=== PATIENT | female | born 1985 | race African-American/Black ===

== ENCOUNTER 2023-02-15 06:51 | Observation (INO) ==
[2023-02-15] MEDS ORDERED: FAMOTIDINE 20MG IV PUSH 20 MG/5 ML SYR IV STA (07:13)
[2023-02-15] MEDS ORDERED: ACETAMINOPHEN 1,000 MG/100 ML VIAL IV STA (07:13)
[2023-02-15] MEDS ORDERED: ONDANSETRON INJ 2 MG/ML 2 ML VIAL IV STA (07:13)
[2023-02-15] MEDS ORDERED: SODIUM CHLORIDE 0.9% 1000ML 1,000 ML IV ONE (07:13)
[2023-02-15 07:33] LABS: Basophils # (auto) 0.03 K/uL (0-0.2); Basophils % (auto) 0.4 %; Eosinophils # (auto) 0.02 K/uL (0-0.50); Eosinophils % (auto) 0.3 %; Hemoglobin 12.3 g/dl (12.0-16.0); Immature Granulocytes # (auto) 0.05 K/uL (0.01-0.20); Immature Granulocytes % (auto) 0.7 %; Lymphocytes # (auto) 0.79 K/uL (1.2-3.4); Lymphocytes % (auto) 11.2 %; Mean Corpuscular Hemoglobin 27.1 pg (25.0-34.0); Mean Corpuscular Hgb Conc 36.2 g/dL (32.0-36.0); Mean Corpuscular Volume 74.9 fL (80.0-100.0); Monocytes # (auto) 0.24 K/uL (0.11-0.59); Monocytes % (auto) 3.4 %; Neutrophils # (auto) 5.93 K/uL (1.40-6.50); Platelet Count 114 K/uL (130-400); RDW Coefficient of Variation 16.2 % (11.5-14.5); RDW Standard Deviation 43.4 fL (36.4-46.3); Red Blood Count 4.54 M/uL (4.20-5.40); White Blood Count 7.06 K/ul (4.8-10.8)
[2023-02-15 07:47] LABS: Appearance Urine Clear (Clear); Bacteria Urine Automated Negative (Negative); Bilirubin Urine Negative (Negative); Blood Urine Negative (Negative); Color Urine Yellow; Glucose Urine UA Negative (Negative); Ketones Urine Negative (Negative); Leukocyte Esterase Urine Negative (Negative); Nitrite Urine Negative (Negative); Protein Urine 1+ (Negative); RBC Urine Automated 0-4 /hpf (0-4); Specific Gravity Urine 1.014 (1.000-1.030); Urobilinogen Urine Negative (Negative); pH Urine 6.5 (4.5-7.5)
[2023-02-15 07:54] LABS: Albumin Globulin Ratio 1.5 (0.9-2); Albumin Level 4.5 gm/dl (3.4-5.0); BUN Creatinine Ratio 20.5 (10-20); Bilirubin,Total 0.9 mg/dl (0.2-1.0); Calcium 9.3 mg/dl (8.6-10.3); Creatinine Clr Calc Pharmacy 185.7 ml/min; Est GFR (African American) 148.4 ml/min; Est GFR (Non-African American) 128.1 ml/min; Potassium 3.4 mmol/L (3.5-5.1); Total Protein 7.5 gm/dl (6.0-8.3)
--- NOTE | 2023-02-15 08:06 | Emergency Department Note ---
ED Provider Note History of Present Illness Chief Complaint: Abdominal Pain Stated Complaint: ABD PAIN,PREG DOESN'T KNOW HOW LONG Time Seen by Provider: 02/15/23 07:00 Source: patient Mode of arrival: ambulatory Limitations: no limitations This patient is a 37-year-old female who presents to the emergency department for evaluation of abdominal pain. Patient reports that she is currently but does not know how far along. Her last menstrual period w as sometime in early November. She has had positive home test and this was confirmed with testing done at [facility]. She states that she woke up at 230 this morning with severe pain in her upper abdomen. She has had vomiting associated with this. She states pain has been constant, nothing makes it better or worse. She denies any vaginal bleeding. She denies urinary symptoms, fevers or changes in bowel movements. She has had 1 prior which went to term. She has not yet had this confirmed by ultrasound. Allergies Allergy/AdvReac Type Severity Reaction Status Date / Time No Known Allergies Allergy Verified 06/01/22 15:00 Past Med/Surg History Medical History Beta thalassemia trait Medical marijuana use Sickle cell trait Surgical History No pertinent past surgical history Family History Denies family history of Ovarian cancer Breast cancer Colorectal cancer Social History Smoking Status: Never smoker Do You Dip or Chew Tobacco: No; Hx Alcohol Use: No Hx Substance Use: No Preferred Language: Bulgarian Communication Ability: Effective Judge Required: No Beliefs That Will Affect Care: None Current Living Situation: Spouse Other Information That Helps Us Care for You: No Feels Safe at Home: Yes Safety Concerns: Feels Safe At This Time Assistive Devices: Glasses Physical Exam Vital Signs Vital Signs - 24 hr 02/15/23 06:54 02/15/23 11:01 02/15/23 10:52 Temperature 36.4 C L 36.9 C 36.9 C Temperature Source Temporal Artery Scan Oral Oral Pulse Rate 82 Pulse Rate [Finger] 76 Pulse Rhythm [Finger] Regular Pulse Strength [Finger] Normal Respiratory Rate 18 18 16 Respiratory Effort / Characteristics Non-Labored Non-Labored Spontaneous Respiratory Depth Normal Normal Respiratory Pattern Regular Blood Pressure 134/79 Blood Pressure [Right Arm] 124/66 138/78 Blood Pressure Mean 97 Blood Pressure Mean [Right Arm] 85 98 Blood Pressure Position Sitting Blood Pressure Position [Right Arm] Sitting Pulse Oximetry 100 100 98 Oxygen Delivery Method Room Air Room Air Room Air Sepsis Recent Fever Within 48 Hours No Sepsis New/Unexplained Change in Mental Status No Sepsis Action Taken by Nursing No Action Required VITALS: Vitals are noted on the nurse's note and reviewed by myself. GENERAL: This is a 37-year-old female, in no acute distress, well-developed well-nourished. HEART: Regular rate and rhythm without murmurs gallops or rubs. LUNGS: Clear to auscultation bilaterally without wheezes, rales or rhonchi. ABDOMEN: Positive bowel sounds x 4. Soft, tenderness in the epigastric region. No guarding or rebound tenderness. NEURO: Patient was alert and oriented to person place and time. Course Administered Medications Lactated Ringer's (Lr) 1,000 mls @ 70 mls/hr IV .[id number] [facility] Stop: 03/17/23 13:59 Last Admin: 02/15/23 16:09 Dose: 70 mls/hr Documented By: JOANA Discontinued Medications Bupivacaine HCl/Epinephrine Bitart (Bupivacaine/Epinephrine 0.25% 1:200,000 30 Ml Vial) Confirm Administered Dose 30 ml .ROUTE .STK-MED ONE Stop: 02/15/23 12:00 Last Admin: 02/15/23 13:41 Dose: 30 ml Documented By: [id number] Fentanyl Citrate (Fentanyl Citrate Pf 100 Mcg/2 Ml Vial) 50 mcg IV Q5M PRN PRN Reason: PACU Use Only-Pain Stop: 02/15/23 19:38 Last Admin: 02/15/23 14:07 Dose: 50 mcg Documented By: LML Sodium Chloride (Nss 1000ml) 1,000 mls @ 999 mls/hr IV .Q1H1M ONE Stop: 02/15/23 08:13 Last Infusion: 02/15/23 09:13 Dose: 0 mls/hr Documented By: Admin: 02/15/23 07:36 Dose: 999 mls/hr Documented By: SIENNA Famotidine (Pepcid 20mg Iv Push) 20 mg in 5 mls @ 2.5 mls/min IV NOW STA Stop: 02/15/23 07:14 Last Admin: 02/15/23 07:29 Dose: 2.5 mls/min Documented By: SIENNA Acetaminophen (Ofirmev) 1,000 mg in 100 mls @ 400 mls/hr IV NOW STA Stop: 02/15/23 07:27 Last Infusion: 02/15/23 09:14 Dose: 0 mls/hr Documented By: Admin: 02/15/23 07:28 Dose: 400 mls/hr Documented By: SIENNA Cefazolin Sodium (Ancef 2000mg) 2,000 mg in 15 mls @ 3.75 mls/min IV PREOP ONE; Protocol Stop: 02/15/23 13:01 Last Admin: 02/15/23 12:22 Dose: 3.75 mls/min Documented By: [id number] Miscellaneous ( Floseal Hemostatic Matrix 10ml) 10 ml TOP ONCE ONE Stop: 02/15/23 13:26 Last Admin: 02/15/23 13:41 Dose: 10 ml Documented By: [id number] Morphine Sulfate (Morphine Sulfate 4 Mg/Ml 1 Ml Carp\Vial) 4 mg IV NOW STA Stop: 02/15/23 08:09 Last Admin: 02/15/23 08:28 Dose: Not Given Documented By: SIENNA Morphine Sulfate (Morphine Sulfate 4 Mg/Ml 1 Ml Carp\Vial) 4 mg IV NOW STA Stop: 02/15/23 08:50 Last Admin: 02/15/23 08:56 Dose: 4 mg Documented By: SIENNA Ondansetron HCl (Ondansetron Inj 2 Mg/Ml 2 Ml Vial) 4 mg IV NOW STA Stop: 02/15/23 07:14 Last Admin: 02/15/23 07:29 Dose: 4 mg Documented By: SIENNA Medical Decision Making Differential Diagnosis Appendicitis, ovarian cyst, ovarian torsion, ectopic , TOA, PID, infections, diverticulitis, UTI, obstruction, mesenteric ischemia, aortic pathology, inflammatory bowel disease, renal colic, PUD, pancreatitis, biliary pathology, hernia, volvulus, constipation, as well as other pathologies. Home Medications was personally reviewed by me Laboratory Data Attestation: I reviewed the patient's lab results. 02/15/23 07:20 02/15/23 07:20 Lab Results 02/15/23 02/15/23 02/15/23 Range/Units 07:20 07:20 07:20 WBC 7.06 (4.8-10.8) K/ul RBC 4.54 (4.20-5.40) M/uL Hgb 12.3 (12.0-16.0) g/dl Hct 34.0 L (37.0-47.0) % MCV 74.9 L (80.0-100.0) fL MCH 27.1 (25.0-34.0) pg MCHC 36.2 H (32.0-36.0) g/dL RDW Std Deviation 43.4 (36.4-46.3) fL RDW Coeff of John 16.2 H (11.5-14.5) % Plt Count 114 L (130-400) K/uL Immature Gran % (Auto) 0.7 % Neut % (Auto) 84.0 % Lymph % (Auto) 11.2 % [place] % (Auto) 3.4 % Eos % (Auto) 0.3 % Baso % (Auto) 0.4 % Neut # (Auto) 5.93 (1.40-6.50) K/uL Lymph # (Auto) 0.79 L (1.2-3.4) K/uL [place] # (Auto) 0.24 (0.11-0.59) K/uL Eos # (Auto) 0.02 (0-0.50) K/uL Baso # (Auto) 0.03 (0-0.2) K/uL Immature Gran # (Auto) 0.05 (0.01-0.20) K/uL Sodium 135 L (136-145) mmol/L Potassium 3.4 L (3.5-5.1) mmol/L Chloride 104 (98-107) mmol/L Carbon Dioxide 24 (21-32) mmol/L Anion Gap 7 (3-11) BUN 9 (6-23) mg/dl Creatinine 0.44 L (0.6-1.2) mg/dl Est Cr Clr Drug Dosing 185.7 ml/min Est GFR ( Amer) 148.4 ml/min Est GFR (Non-Af Amer) 128.1 ml/min BUN/Creatinine Ratio 20.5 H (10-20) Glucose 116 H (70-99(Fasting)) mg/dl Calcium 9.3 (8.6-10.3) mg/dl Total Bilirubin 0.9 (0.2-1.0) mg/dl AST 19 (13-39) U/L ALT 26 (7-52) U/L Alkaline Phosphatase 45 (34-104) U/L Total Protein 7.5 (6.0-8.3) gm/dl Albumin 4.5 (3.4-5.0) gm/dl Globulin 3.0 (2.5-4.0) gm/dl Albumin/Globulin Ratio 1.5 (0.9-2) Lipase 13 (11-82) U/L HCG, Quant 44638 mIU/ml Urine Color Urine Appearance (Clear) Urine pH (4.5-7.5) Ur Specific [place] (1.000-1.030) Urine Protein (Negative) Urine Glucose (UA) (Negative) Urine Ketones (Negative) Urine Blood (Negative) Urine Nitrite (Negative) Urine Bilirubin (Negative) Urine Urobilinogen (Negative) Ur Leukocyte Esterase (Negative) Urine WBC (Auto) (0-5) /hpf Urine RBC (Auto) (0-4) /hpf U Hyaline Cast (Auto) (0-5) /lpf U Epithel Cells (Auto) (0-5) /lpf Urine Bacteria (Auto) (Negative) 02/15/23 Range/Units 07:32 WBC (4.8-10.8) K/ul RBC (4.20-5.40) M/uL Hgb (12.0-16.0) g/dl Hct (37.0-47.0) % MCV (80.0-100.0) fL MCH (25.0-34.0) pg MCHC (32.0-36.0) g/dL RDW Std Deviation (36.4-46.3) fL RDW Coeff of John (11.5-14.5) % Plt Count (130-400) K/uL Immature Gran % (Auto) % Neut % (Auto) % Lymph % (Auto) % [place] % (Auto) % Eos % (Auto) % Baso % (Auto) % Neut # (Auto) (1.40-6.50) K/uL Lymph # (Auto) (1.2-3.4) K/uL [place] # (Auto) (0.11-0.59) K/uL Eos # (Auto) (0-0.50) K/uL Baso # (Auto) (0-0.2) K/uL Immature Gran # (Auto) (0.01-0.20) K/uL Sodium (136-145) mmol/L Potassium (3.5-5.1) mmol/L Chloride (98-107) mmol/L Carbon Dioxide (21-32) mmol/L Anion Gap (3-11) BUN (6-23) mg/dl Creatinine (0.6-1.2) mg/dl Est Cr Clr Drug Dosing ml/min Est GFR ( Amer) ml/min Est GFR (Non-Af Amer) ml/min BUN/Creatinine Ratio (10-20) Glucose (70-99(Fasting)) mg/dl Calcium (8.6-10.3) mg/dl Total Bilirubin (0.2-1.0) mg/dl AST (13-39) U/L ALT (7-52) U/L Alkaline Phosphatase (34-104) U/L Total Protein (6.0-8.3) gm/dl Albumin (3.4-5.0) gm/dl Globulin (2.5-4.0) gm/dl Albumin/Globulin Ratio (0.9-2) Lipase (11-82) U/L HCG, Quant mIU/ml Urine Color Yellow Urine Appearance Clear (Clear) Urine pH 6.5 (4.5-7.5) Ur Specific [place] 1.014 (1.000-1.030) Urine Protein 1+ H (Negative) Urine Glucose (UA) Negative (Negative) Urine Ketones Negative (Negative) Urine Blood Negative (Negative) Urine Nitrite Negative (Negative) Urine Bilirubin Negative (Negative) Urine Urobilinogen Negative (Negative) Ur Leukocyte Esterase Negative (Negative) Urine WBC (Auto) 1-5 (0-5) /hpf Urine RBC (Auto) 0-4 (0-4) /hpf U Hyaline Cast (Auto) 1-5 (0-5) /lpf U Epithel Cells (Auto) 10-20 H (0-5) /lpf Urine Bacteria (Auto) Negative (Negative) Imaging Data Attestation: I personally reviewed and interpreted this imaging study as follows: Radiologist's Impression: Gallbladder Ultrasound 02/15/23 07:14 ABDOMINAL ULTRASOUND, RIGHT UPPER QUADRANT HISTORY: Acute upper abdominal pain upper abdominal pain, vomiting. COMPARISON: None. FINDINGS: Pancreas: The pancreas demonstrates a normal echotexture. Liver: Unremarkable. Gallbladder: Distended gallbladder with shadowing cholelithiasis, mild pericholecystic fluid and borderline bladder wall thickening measuring up to 4 mm. Sonographic Wiley's sign reported as negative. CBD: 0.4 cm. Right kidney: No hydronephrosis. IMPRESSION: 1. Distended gallbladder with cholelithiasis, mild gallbladder wall thickening and pericholecystic fluid. Although the sonographic Wiley sign was reported as negative, these findings are suspicious for acute cholecystitis in the appropriate clinical setting. 2. No biliary ductal dilation. ACT 112: Negative or not required by law. Electronically signed by: Erwin Sawant M.D. 02/15/2023 9:24 AM Pelvic/Transvag US 02/15/23 07:14 US ectopic CLINICAL HISTORY: , unsure how far along, abd pain Technique: Real-time sonographic images of the pelvic contents were obtained with transabdominal and transvaginal technique. COMPARISON: None available at the time of this dictation. FINDINGS: Single live intrauterine is seen. [place]-rump length measures 5.1 cm corresponding to a gestational age of 11 weeks 6 days. heart rate is 159 bpm. Anterior placenta is noted. Right ovary is not visualized. Left ovary measures 3.8 cm. Blood flow is seen. IMPRESSION: Single live intrauterine . ACT 112: Negative or not required by law. Electronically signed by: Anurag Carroll M.D. 02/15/2023 9:30 AM MDM Narrative This patient is a 37-year-old female who presents to the emergency department for evaluation of abdominal pain. Patient currently but is not sure how far along. She is having epigastric abdominal pain with radiation into the back. Due to her symptoms the above work-up was obtained. Patient has no leukocytosis or anemia. LFTs are within normal limits, no concerning electrolyte abnormalities. Platelets slightly low which are baseline for the patient. Ultrasound imaging was performed. Patient has a single viable intrauterine measuring 11 weeks 6 days. Ultrasound of the gallbladder was performed and does show evidence of acute cholecystitis. General surgery was consulted and did evaluate the patient. They elected to take the patient to the OR for management. While in the emergency department, patient received Pepcid, Tylenol and Zofran for symptoms. She was still having severe pain after this and after risk/benefit discussion, 4 mg of morphine was administered to the patient. Impression Acute cholecystitis Discharge Plan Visit Data Chief Complaint: Abdominal Pain Stated Complaint: ABD PAIN,PREG DOESN'T KNOW HOW LONG ED Provider: Noemí Jackson ED Midlevel Provider: Sera Araujo Discharge Problem: Acute cholecystitis Discharge Instructions Interventions: ED Discharge Assessment Last Done: 02/15/23 11:04
[2023-02-15] MEDS ORDERED: MoRPHine SULFATE 4 MG/ML 1 ML CARP\\VIAL IV STA ×2 (08:08→08:49)
--- NOTE | 2023-02-15 09:25 | Ultrasound Report ---
ABDOMINAL ULTRASOUND, RIGHT UPPER QUADRANT HISTORY: Acute upper abdominal pain upper abdominal pain, vomiting. COMPARISON: None. FINDINGS: Pancreas: The pancreas demonstrates a normal echotexture. Liver: Unremarkable. Gallbladder: Distended gallbladder with shadowing cholelithiasis, mild pericholecystic fluid and bord jose elias bladder wall thickening measuring up to 4 mm. Sonographic Wiley's sign reported as negative. CBD: 0.4 cm. Right kidney: No hydronephrosis. IMPRESSION: 1. Distended gallbladder with cholelithiasis, mild gallbladder wall thickening and pericholecystic fl uid. Although the sonographic Wiley sign was reported as negative, these findings are suspicious for acute cholecystitis in the appropriate clinical setting. 2. No biliary ductal dilation. ACT 112: Negative or not required by law. Electronically signed by: Erwin Sawant M.D. 02/15/2023 9:24 AM
--- NOTE | 2023-02-15 09:32 | Ultrasound Report ---
US ectopic CLINICAL HISTORY: , unsure how far along, abd pain Technique: Real-time sonographic images of the pelvic contents were obtained with transabdominal and transvaginal technique. COMPARISON: None available at the time of this dictation. FINDINGS: Single live intrauterine is seen. [place]-rump length measures 5.1 cm corresponding to a gest ational age of 11 weeks 6 days. heart rate is 159 bpm. Anterior placenta is noted. Right ovary is not visualized. Left ovary measures 3.8 cm. Blood flow is seen. IMPRESSION: Single live intrauterine . ACT 112: Negative or not required by law. Electronically signed by: Anurag Carroll M.D. 02/15/2023 9:30 AM
--- NOTE | 2023-02-15 10:37 | Surgery Consultation ---
Date of Consultation February 15, 2023 Assessment & Plan (1) Acute cholecystitis: Her ultrasound images and results were personally viewed and interpreted by myself as well as her laboratory values Her ultrasound and physical exam are certainly concerning for acute cholecystitis I think proceeding with cholecystectomy at this time outweighs the risks to the fetus I do not think that waiting till after delivery which would be another 6 months would be in the best interest of the patient and fetus We will proceed with a laparoscopic cholecystectomy, possible open, possible intraoperative cholangiogram Consent was obtained, risk discussed including bleeding, infection, bile leak, ductal injury, injury to surrounding structures History of Present Illness Reason for Consultation: Acute cholecystitis History of Present Illness Is a 37-year-old female who presented to the ER today after sharp epigastric and right upper quadrant abdominal pain with radiation to her back since 230 this morning. She states that the pain is still present may be slightly improved. She denies any fever or chills. She denies any nausea or vomiting. She has not eaten since last night. She states she has never had pain this bad before. She denies any previous abdominal surgeries. She does have sickle cell trait. Allergies Allergy/AdvReac Type Severity Reaction Status Date / Time No Known Allergies Allergy Verified 06/01/22 15:00 Patient History Medical History Beta thalassemia trait Sickle cell trait Surgical History No pertinent past surgical history Family History Denies family history of Ovarian cancer Breast cancer Colorectal cancer Social History Smoking Status: Current every day smoker Do You Dip or Chew Tobacco: No; Hx Alcohol Use: No Hx Substance Use: Yes (medical marijuana) Prescribed Medications: Marijuana Feels Safe at Home: Yes Review of Systems Constitutional: no fever and no chills Eyes: no blind spots and no worsening vision Ear, Nose, Mouth, Throat: no ear pain and no hearing loss Respiratory: no cough and no dyspnea Cardiovascular: no chest pain and no dyspnea on exertion Gastrointestinal: + abdominal pain; no nausea, no change in stools, no constipation, no diarrhea/loose stools and no blood in stools Genitourinary: no dysuria and no difficulty urinating Musculoskeletal: + back pain; no neck pain Integumentary: no acne, no lesions, no non-healing lesions and no skin ulcer Neurologic: no gait abnormality, no headache(s) and no confusion Psychiatric: no behavioral changes and no depression Hematologic / Lymphatic: no easy bleeding and no easy bruising Sickle cell trait Physical Exam Constitutional: WD/WN, vitals as above Eyes: PERRL, conjunctivae normal, anicteric sclerae ENMT: external ear and nose normal, oropharynx normal Neck: trachea midline, no thyromegaly Respiratory: normal respiratory effort, lungs clear to auscultation Cardiovascular: RRR, no murmur, no edema Gastrointestinal (Abdomen): Inspection/Auscultation: abdomen normal to inspection; abdomen not distended Percussion/Palpation: + abdomen tender (Right upper quadrant and epigastrium) and abdomen soft; no guarding and abdomen not rigid Positive Wiley's Musculoskeletal: no cyanosis or clubbing, extremities motor strength 5/5 Skin: no rashes, warm and dry Neurologic: PERRL, EOMI, accommodation nl, no face palsy, no dysarthria Psychiatric: A+Ox3, euthymic affect Results & Data Vital Signs (Past 12 Hours) Vital Signs Temp Pulse Resp BP Pulse Ox O2 Del Method 02/15/23 06:54 36.4 C L 82 18 134/79 100 Room Air Diagnostic Findings ABDOMINAL ULTRASOUND, RIGHT UPPER QUADRANT HISTORY: Acute upper abdominal pain upper abdominal pain, vomiting. COMPARISON: None. FINDINGS: Pancreas: The pancreas demonstrates a normal echotexture. Liver: Unremarkable. Gallbladder: Distended gallbladder with shadowing cholelithiasis, mild pericholecystic fluid and borderline bladder wall thickening measuring up to 4 mm. Sonographic Wiley's sign reported as negative. CBD: 0.4 cm. Right kidney: No hydronephrosis. IMPRESSION: 1. Distended gallbladder with cholelithiasis, mild gallbladder wall thickening and pericholecystic fluid. Although the sonographic Wiley sign was reported as negative, these findings are suspicious for acute cholecystitis in the appropriate clinical setting. 2. No biliary ductal dilation. PG Care Time/CCT Total # of Minutes Spent Total Time Spent with Patient: Total time spent is greater than 50% in coordination of care (as documented) at patient's floor/unit and/or counseling patient: Coding Level of Care Code 39162 IN/OBS CONSULT LVL 5,80M Diagnoses Acute cholecystitis K81.0
--- NOTE | 2023-02-15 11:37 | Anesthesiology Consultation ---
Date of Service February 15, 2023 Assessment & Plan ASA [id number] Proposed Anesthesia Anesthesia Type: General Risk / Benefits Reviewed With: PT / POA / Parent / Guardian, Accepts Plan and Informed Consent Obtained Additional Comments: pt is [address] loja does not feel waiting will benefit pt/fetus. We will rsi because 12 weeks . pt also states that she does have sickle cell crisis with her trait. recent crisis in her right arm History Surgery Operation Date: 02/15/23 11:35 Proposed Procedures p Laparoscopic Cholecystectomy, Possible Open, Possible Cholangiogram - Leander Loja DO Height/Weight Height: 5 ft 6 in Weight: 80.7 kg Allergies Allergy/AdvReac Type Severity Reaction Status Date / Time No Known Allergies Allergy Verified 06/01/22 15:00 NPO Date Last Intake of Fluids: 02/15/23 Time Last Intake of Fluids: 06:00 Last Intake of Fluids Comment: water and chicken broth Date Last Intake of Solids: 02/14/23 Time Last Intake of Solids: 21:00 Past Medical History Medical History Beta thalassemia trait Medical marijuana use Sickle cell trait Exercise / Class Metabolic Activity II 4-5 Yardwork/Stairs/Walk up hill Past Family History Family History Denies family history of Ovarian cancer Breast cancer Colorectal cancer Past Surgical History Surgical History No pertinent past surgical history Past Anesthesia History No Hx of Anesthesia Complications and No Family Hx of Anesthesia Complications History of PONV No Hx of PONV and No Hx of Motion Sickness Social History Smoking Status: Current every day smoker Do You Dip or Chew Tobacco: No Hx Alcohol Use: No Hx Substance Use: Yes (medical marijuana) Review of Systems denies fever/cough/ colds/ chest pain/ SOB/ LOC denies LOC Physical Exam Vital Signs Last Vital Signs Temp 36.9 C 02/15/23 11:01 Pulse 76 02/15/23 11:01 Resp 18 02/15/23 11:01 BP 124/66 02/15/23 11:01 Pulse Ox 100 02/15/23 11:01 O2 Del Method Room Air 02/15/23 11:01 ENMT Mouth: no TMJ abnormality and no dentition abnormality Thyromental Distance: > or= 3.5 Finger Breadths Mallampati Class: I Neck neck extension not limited Respiratory normal respiratory effort; no respiratory distress Auscultation: lungs clear to auscultation bilaterally Cardiovascular Rate/Rhythm: regular rate and regular rhythm Neurologic moves all extremities Psychiatric Orientation: alert and oriented x 3 Testing Laboratory Results 02/15/23 07:20 02/15/23 07:20 HCG, Quant [id number] mIU/ml 02/15/23 07:20 Urine Color Yellow 02/15/23 07:32 Urine Appearance Clear (Clear) 02/15/23 07:32 Urine pH 6.5 (4.5-7.5) 02/15/23 07:32 Ur Specific [place] 1.014 (1.000-1.030) 02/15/23 07:32 Urine Protein 1+ (Negative) H 02/15/23 07:32 Urine Glucose (UA) Negative (Negative) 02/15/23 07:32 Urine Ketones Negative (Negative) 02/15/23 07:32 Urine Nitrite Negative (Negative) 02/15/23 07:32 Ur Leukocyte Esterase Negative (Negative) 02/15/23 07:32 Urine WBC (Auto) 1-5 /hpf (0-5) 02/15/23 07:32 Urine RBC (Auto) 0-4 /hpf (0-4) 02/15/23 07:32 U Hyaline Cast (Auto) 1-5 /lpf (0-5) 02/15/23 07:32 U Epithel Cells (Auto) 10-20 /lpf (0-5) H 02/15/23 07:32 Urine Bacteria (Auto) Negative (Negative) 02/15/23 07:32 02/15/23 07:20 HCG, Quant [id number]
[2023-02-15] MEDS ORDERED: ATROPINE SULFATE 0.1 MG/ML 10ML SYR IV PRN (11:38)
[2023-02-15] MEDS ORDERED: ONDANSETRON INJ 2 MG/ML 2 ML VIAL IV PRN ×2 (11:38→13:53)
[2023-02-15] MEDS ORDERED: ePHEDrine sulfate 50 MG/ML AMP IV PRN (11:38)
[2023-02-15] MEDS ORDERED: fentaNYL citrate PF 100 MCG/2 ML VIAL IV PRN (11:38)
[2023-02-15] MEDS ORDERED: HYDROmorphone INJ 2 MG/ML SYR/VIAL IV PRN (11:38)
[2023-02-15] MEDS ORDERED: DEXAMETHASONE SOD INJ 4 MG/ML VIAL ONE (11:53)
[2023-02-15] MEDS ORDERED: SUCCINYLCHOLINE CHLORIDE 20 MG/ML 10 ML VIAL IV ONE (11:53)
[2023-02-15] MEDS ORDERED: ONDANSETRON INJ 2 MG/ML 2 ML VIAL ONE (11:53)
[2023-02-15] MEDS ORDERED: PROPOFOL IV EMULSION 10 MG/ML 20 ML VIAL IV ONE (11:53)
[2023-02-15] MEDS ORDERED: fentaNYL citrate PF 100 MCG/2 ML VIAL ONE ×2 (11:53→12:41)
[2023-02-15] MEDS ORDERED: ROCURONIUM BROMIDE 10 MG/ML 5 ML VIAL IV ONE (11:53)
[2023-02-15] MEDS ORDERED: BUPIVACAINE/EPINEPHRINE 0.25% 1:200,000 30 ML VIAL ONE (11:59)
[2023-02-15] MEDS ORDERED: ceFAZolin 330 MG/ML 1 GM VIAL ONE (12:20)
[2023-02-15] MEDS ORDERED: ceFAZolin 2000MG 2,000 MG/15 ML SYR IV ONE (12:58)
[2023-02-15] MEDS ORDERED: NEOSTIGMINE METHYLSULFATE 1 MG/ML 10ML VIAL ONE (13:06)
[2023-02-15] MEDS ORDERED: GLYCOPYRROLATE 0.2 MG/ML VIAL ONE (13:06)
[2023-02-15] MEDS ORDERED: FLOSEAL HEMOSTATIC MATRIX 10ML TOP ONE (13:25)
--- NOTE | 2023-02-15 13:42 | Post Operative Brief Note ---
PG Immediate Post Op with CF Date of Surgery February 15, 2023 Pre & Post Diagnosis Operation Date: 02/15/23 11:35 Pre-Op Diagnosis: Acute cholecystitis Post-Op Diagnosis: Acute cholecystitis I identified the patient and participated in the time-out.: Yes Procedure Operation Date: 02/15/23 11:35 Actual Procedures p Laparoscopic Cholecystectomy(Not Applicable) - Leander Laboy DO Surgeon Leander Laboy DO Bin Operator Angélica BULLOCK Estimated Blood Loss 25 Findings See Below Acutely inflamed edematous gallbladder consistent with acute cholecystitis Specimens Specimen Description: A. Gallbladder Anesthesia Type General Complications none Disposition Disposition: Recovery Room
--- NOTE | 2023-02-15 13:44 | Operative Report ---
PG Post Operative Report Pre & Post Diagnosis Operation Date: 02/15/23 11:35 Pre-Op Diagnosis: Acute cholecystitis Post-Op Diagnosis: Acute cholecystitis I identified the patient and participated in the time-out.: Yes Procedure Operation Date: 02/15/23 11:35 Actual Procedures p Laparoscopic Cholecystectomy(Not Applicable) - Leander Laboy DO Surgeon Leander Laboy DO Flight Crew Scheduler Angélica BULLOCK Estimated Blood Loss 25 Findings See Below Acutely inflamed edematous gallbladder consistent with acute cholecystitis Fluids see anesthesia record Specimens Gallbladder to pathology Drains None Anesthesia Type General Complications none Disposition Disposition: Recovery Room Indications 37-year-old female 12 weeks with acute cholecystitis Description of Procedure The patient was brought to the operating room and placed in the supine position with both arms extended. At this time she underwent general endotracheal anesthesia without any problems. She was given appropriate pre-operative antibiotics. Her abdomen prepped and draped in the usual sterile fashion. A timeout was called, the procedure was verified as Laparoscopic cholecystectomy, possible open, possible intra-operative cholangiogram. Surgical, nursing and anesthesia teams agreed and the procedure was begun. After injection of 0.25% Marcaine with epinephrine, a supraumbilical vertical incision was made and carried down to the fascia using S-retractors. The abdominal wall was then elevated with towel clamps and abdomen entered using the Veress needle confirming position using the saline drop test. Pneumoperitoneum was established. 5mm trocar was placed. Laparoscope was introduced. No injury from entry into the abdomen was visualized after inspection of the abdomen. Three further ports were placed under direct visualization. One 11mm in the subxiphoid region and two 5mm in the RUQ. At this time the abdomen was inspected and the gallbladder identified. There were dense omental adhesions to the gallbladder that were pulled down using blunt and sharp dissection. The gallbladder fundus was grasped and retracted cephalad. The gallbladder infundibulum was then grasped and retracted laterally. The gallbladder itself was distended and edematous consistent with acute cholecystitis. The cystic duct and cystic artery were then identified and skeletonized. The critical view of safety was obtained. They were both then clipped twice proximally and once distally and then divided using scissors. The gallbladder was then taken off of the liver bed using electrocautery and placed in an endocatch bag and removed from the subxiphoid port. The liver bed was then inspected and no bile leak or bleeding was evident. The subxiphoid port was then closed using 0-Vicryl using the suture passer. The trocars were then removed under direct visualization and no bleeding was present. Abdomen was desufflated. The skin was then closed using 4-0 Monocryl in a subcuticular fashion. Surgical glue was applied. Needle and sponge counts were correct x 2. At this time the patient was awoken from anesthesia and extubated having remained stable throughout the entire case. The patient was then transported to PACU in stable condition. The nurse practitioner was present scrubbed for entire case. She was essential in positioning, prepping and draping the patient, retraction and exposure, driving the laparoscope, closure of the incisions and placement of the dressings. I attest to the content of the Intraoperative Record and any orders documented therein. Any exceptions are noted below.
[2023-02-15] MEDS ORDERED: MoRPHine SULFATE 4 MG/ML 1 ML CARP\\VIAL IV PRN (13:53)
[2023-02-15] MEDS ORDERED: oxyCODONE HCL IR 5 MG TAB (IMMEDIATE RELEASE) PO PRN (13:53)
[2023-02-15] MEDS ORDERED: MoRPHine SULFATE 2 MG/ML CARP IV PRN (13:53)
--- NOTE | 2023-02-15 15:14 | Anesthesiology Progress Note ---
Date of Service February 15, 2023 Anesthesia Post Procedure Vital Signs Vital Signs: Temp Pulse Pulse Pulse Resp BP BP 02/15/23 15:05 36.4 C L 100 H 78 22 127/74 02/15/23 13:55 36.4 C L 100 H 19 136/54 L 02/15/23 10:52 36.9 C 16 138/78 02/15/23 11:01 36.9 C 76 18 124/66 02/15/23 06:54 36.4 C L 82 18 134/79 Pulse Ox O2 Del Method 02/15/23 15:05 97 Nasal Cannula 02/15/23 13:55 98 Nasal Cannula 02/15/23 10:52 98 Room Air 02/15/23 11:01 100 Room Air 02/15/23 06:54 100 Room Air Pain Intensity Abdomen: Pain Intensity: 3 Transfer of Care Handoff Completed per policy Notes Mental Status: alert / awake / arousable and participated in evaluation Patient Amnestic to Procedure: Yes Nausea / Vomiting: adequately controlled Pain: adequately controlled Airway Patency, RR, SpO2: stable & adequate BP & HR: stable & adequate Hydration State: stable & adequate Anesthetic Complications: no major complications apparent and Pt Satisfied with anesthetic care
--- NOTE | 2023-02-15 15:29 | Ultrasound Report ---
US OB limited CLINICAL HISTORY: pt has anesthesia need to document heart tones COMPARISON STUDY: Obstetrical ultrasound 02/15/2023. FINDINGS: There is a single intrauterine gestation again noted. heart rate is present measuring between 149 of 178 BPM. anatomic survey was not performed. Amniotic fluid index appears within normal limits. IMPRESSION: Single viable intrauterine gestation with a heart rate between 149 and 178 BPM. ACT 112: Negative or not required by law. Electronically signed by: Brando Flores M.D. 02/15/2023 3:28 PM
[2023-02-15] MEDS: LACTATED RINGER'S 1,000 ML IV SCH (16:09)
[2023-02-15] MEDS: oxyCODONE HCL IR 5 MG TAB (IMMEDIATE RELEASE) PO PRN (16:59)
[2023-02-15] MEDS: ACETAMINOPHEN 325 MG TAB PO PRN ×2 (16:59→23:29)
[2023-02-15] MEDS ORDERED: COUGH DROP (SUGAR FREE) LOZ 24 LOZ/1 BOX BUCCAL ONE (21:08)
[2023-02-16] MEDS: LACTATED RINGER'S 1,000 ML IV SCH (07:20)
[2023-02-16] MEDS: oxyCODONE HCL IR 5 MG TAB (IMMEDIATE RELEASE) PO PRN (08:48)
[2023-02-16] MEDS: ACETAMINOPHEN 325 MG TAB PO PRN (08:49)
[2023-02-16 08:50] LABS: Basophils # (auto) 0.02 K/uL (0-0.2); Basophils % (auto) 0.2 %; Eosinophils # (auto) 0.01 K/uL (0-0.50); Eosinophils % (auto) 0.1 %; Hematocrit (blood only) 30.1 % (37.0-47.0); Immature Granulocytes # (auto) 0.07 K/uL (0.01-0.20); Immature Granulocytes % (auto) 0.6 %; Lymphocytes # (auto) 1.37 K/uL (1.2-3.4); Lymphocytes % (auto) 12.3 %; Mean Corpuscular Hemoglobin 27.4 pg (25.0-34.0); Mean Corpuscular Hgb Conc 36.5 g/dL (32.0-36.0); Mean Corpuscular Volume 74.9 fL (80.0-100.0); Monocytes # (auto) 0.46 K/uL (0.11-0.59); Monocytes % (auto) 4.1 %; Neutrophils # (auto) 9.21 K/uL (1.40-6.50); Neutrophils % (auto) 82.7 %; Platelet Count 112 K/uL (130-400); RDW Coefficient of Variation 15.8 % (11.5-14.5); RDW Standard Deviation 42.5 fL (36.4-46.3); Red Blood Count 4.02 M/uL (4.20-5.40); White Blood Count 11.14 K/ul (4.8-10.8)
[2023-02-16 09:13] LABS: Albumin Globulin Ratio 1.5 (0.9-2); Bilirubin,Total 1.4 mg/dl (0.2-1.0); Calcium 9.3 mg/dl (8.6-10.3); Creatinine Clr Calc Pharmacy 177.6 ml/min; Est GFR (African American) 146.3 ml/min; Est GFR (Non-African American) 126.2 ml/min; Globulin 2.7 gm/dl (2.5-4.0); Potassium 3.2 mmol/L (3.5-5.1); Total Protein 6.7 gm/dl (6.0-8.3)
--- NOTE | 2023-02-16 10:25 | Surgery Progress Note ---
Date of Service February 16, 2023 Assessment & Plan (1) Acute cholecystitis: Plan: Patient is doing well postoperative day 1 lap kyra Advance diet Discharge home today Admission and Anticipated Discharge Date Admission Date: February 15, 2023 Subjective Patient seen and examined. Minimal abdominal pain. Denies nausea or vomiting. Afebrile. Physical Exam Constitutional: WD/WN, vitals as above Gastrointestinal (Abdomen): Dressings clean dry and intact Results & Data Vital Signs (Past 12 Hours) Vital Signs Temp Pulse Resp BP Pulse Ox O2 Del Method 02/16/23 07:25 37.1 C 77 18 109/68 100 Room Air 02/16/23 06:35 36.8 C 60 16 98/57 L 97 Room Air 02/16/23 03:14 37.2 C 73 16 97/56 L 100 Room Air 02/15/23 22:26 36.7 C 60 16 109/74 100 Room Air PG Care Time/CCT Total # of Minutes Spent Total Time Spent with Patient: Total time spent is greater than 50% in coordination of care (as documented) at patient's floor/unit and/or counseling patient: Coding Level of Care Code 77731 Post Operative Follow-Up Diagnoses Acute cholecystitis K81.0
== END 2023-02-16 13:28 | disposition home or self-care (01) ==
LOC: ED 06:51 → ASU 10:55 → 3E 10:55 → ASU 11:12

== ENCOUNTER 2023-07-15 09:58 | Inpatient (IN) ==
[2023-07-15] MEDS ORDERED: HYDROmorphone INJ 1 MG/ML SYRINGE IV STA (10:39)
[2023-07-15] MEDS ORDERED: SODIUM CHLORIDE 0.9% 1,000 ML IV ONE (10:39)
--- NOTE | 2023-07-15 10:48 | Emergency Department Note ---
History of Present Illness General Chief complaint: Pain (Generalized) Stated complaint: SICKLE CELL Time Seen by Provider: 07/15/23 10:34 History of Present Illness Maximum Pain Intensity: 8 37-year-old female G2, P1 with a history of sickle cell disease presents from the [facility] for further evaluation of sickle cell and treatment. Patient was seen upstairs and had labor ruled out. Patient recently was admitted in [facility] at [facility] for a sickle cell crisis and also received blood at that time. Patient today was given 300 mL of saline as well as 0.5 mg of IV Dilaudid and then was transferred to our emergency department. Patient denies any nausea vomiting denies leakage of fluid denies specific abdominal pain denies vaginal bleeding. Patient states the pain is in the arms and legs and buttocks which is a typical distribution for her sickle cell disease. She currently rates pain is moderate. There are no other mitigating or alleviating factors Home Medications Medication Instructions Recorded Confirmed Type folic acid 1 mg tablet 1 mg PO DAILY 06/14/23 07/15/23 History pediatric multivitamin no.76 1 tab PO DAILY 06/14/23 07/15/23 History (Flintstones Complete chewable tablet) acetaminophen 325 mg tablet 650 mg PO DIRECTED PRN Pain 07/15/23 07/15/23 History Allergies Allergy/AdvReac Type Severity Reaction Status Date / Time No Known Allergies Allergy Verified 07/15/23 11:25 Past Med/Surg History Medical History Medical marijuana use Treatment for sickle cell pain before . Quit using while . Beta thalassemia trait Sickle cell trait Surgical History Hx laparoscopic cholecystectomy (02/15/23) Laparoscopic Cholecystectomy(Not Applicable) - Leander Laboy DO Family History Denies family history of Ovarian cancer Breast cancer Colorectal cancer Social History Smoking Status: Never smoker Do You Dip or Chew Tobacco: No; Hx Alcohol Use: No Hx Substance Use: No Preferred Language: Haitian Communication Ability: Effective Visual Impairment: No Limitations Hearing Ability: Normal State Highway Police Officer Required: No Beliefs That Will Affect Care: None marital status: Single marital status details: Steffen Solorio Current Living Situation: Significant Other Current Living Situation Comment: 14 yo Margot Mckay, Steffen Lyndsey - nogc other current occupational status: employed current occupation: [employer] Feels Safe at Home: Yes Diet: regular Assistive Devices: None Immunizations: 37-year-old female with a history of sickle cell disease presents from the [facility] after evaluation for continued pain in the arms legs and buttocks. Patient denies any vaginal bleeding denies leakage of fluid denies specific abdominal pain. Patient recently was in [facility] she was admitted for a period of time at [facility] and discharged this past Saturday. Patient continues to complain of pain and being in a sickle cell crisis. Review of Systems A total of 10 systems reviewed and were otherwise negative Musculoskeletal: + joint pain Physical Exam Vital Signs Vital Signs - 24 hr 07/15/23 10:03 07/15/23 12:00 Temperature 36.6 C Temperature Source Temporal Artery Scan Pulse Rate 75 Pulse Rate [Radial] 71 Pulse Rhythm [Radial] Regular Respiratory Rate 18 18 Respiratory Effort / Characteristics Non-Labored Spontaneous Non-Labored Respiratory Depth Normal Normal Respiratory Pattern Regular Blood Pressure 131/88 Blood Pressure [Right Arm] 95/63 L Blood Pressure Mean 102 Blood Pressure Mean [Right Arm] 73 Blood Pressure Position Sitting Pulse Oximetry 100 100 Oxygen Delivery Method Room Air Room Air Sepsis Recent Fever Within 48 Hours No Sepsis New/Unexplained Change in Mental Status No Sepsis Action Taken by Nursing No Action Required GENERAL: Patient is awake alert in no acute distress patient is resting comfortably and showing no signs of anxiety EYES: The conjunctivae are clear. The pupils are round and reactive. EARS, NOSE, MOUTH AND THROAT: The nose is without any evidence of any deformity. Mucous membranes are moist. Tongue is midline. NECK: The neck is nontender and supple. RESPIRATORY: Normal respiratory effort is noted there is no evidence of wheezing rhonchi or rales CARDIOVASCULAR: Regular rate and rhythm noted there no murmurs rubs or gallops normal S1 normal S2. GASTROINTESTINAL: The abdomen is soft. Abdomen is nontender. Gravid, nontender BACK: No midline tenderness or or step-off noted range of motion in flexion extension as well as rotation no signs of muscle spasm noted MUSCULOSKELETAL/EXTREMITIES: There is no evidence of gross deformity full range of motion is noted in the hips and shoulders. SKIN: There is no obvious evidence of any rash. There are no petechiae, pallor or cyanosis noted. NEUROLOGIC: Patient is awake alert and oriented x3 strength is symmetric Course Reevaluation(s) Reevaluation #1: Patient was started on IV fluids and IV Dilaudid Time: 11:13 Consultations Consultation #1: Case was discussed with the [facility] Hospitalist for admission Time: 11:13 Administered Medications Discontinued Medications Hydromorphone HCl (Hydromorphone Inj 1 Mg/Ml Syringe) 1 mg IV NOW STA Stop: 07/15/23 10:40 Last Admin: 07/15/23 10:58 Dose: 1 mg Documented By: ISABELLE Sodium Chloride (Nss) 1,000 mls @ 999 mls/hr IV .Q1H1M ONE Stop: 07/15/23 11:39 Last Admin: 07/15/23 10:58 Dose: 999 mls/hr Documented By: ISABELLE Medical Decision Making Medical Records Attestation: I reviewed the patient's medical records. Home Medications Current Medication List: was personally reviewed by me Laboratory Data Attestation: I reviewed the patient's lab results. Patient has a low hemoglobin below 10 and a reticulocyte count that is elevated per my interpretation 07/15/23 11:54 Lab Results 07/15/23 Range/Units 08:42 Reticulocyte % (Auto) 4.90 H (0.50-2.00) % Reticulocyte # 0.140 H (0.020-0.100) 10^6/uL MDM Narrative Medical decision making differential diagnosis includes sickle cell crisis, aplastic crisis, dehydration, early , labor, chronic pain Plan is to give IV fluids, IV opiates The patient was in the [facility] and had toco monitoring and a cervical exam and was started on IV fluids she received 300 mL of saline and 0.5 of Dilaudid prior to her being transferred down to the emergency department I reviewed the old records of May 2023 and May [address] angio of the chest, patient was treated for sickle cell crisis in May Patient is currently not in labor according to the [facility] doctor [place] Patient will receive IV fluids and IV opiates Patient will be admitted for management of her pain and sickle cell crisis Impression & Plan Sickle cell crisis, Discharge Plan Visit Data Chief Complaint: Pain (Generalized) Stated Complaint: SICKLE CELL ED Provider: Delbert Bajwa Discharge Problem: Sickle cell crisis, Patient Disposition: Admitted As Inpatient Forms Stand Alone Forms: [facility] Prescriptions Prescriptions: No Action acetaminophen 325 mg tablet 650 mg PO DIRECTED PRN (Reason: Pain) folic acid 1 mg Tablet 1 mg PO DAILY Flintstones Complete Tablet,Chewable 1 tab PO DAILY Referrals Referrals: Amanda Randall MD [Primary Care Provider] -
[2023-07-15 10:55] LABS: Reticulocyte % 4.9 % (0.50-2.00); Reticulocytes # 0.14 10^6/uL (0.020-0.100)
[2023-07-15 12:27] LABS: Alanine Aminotransferase 102 U/L (7-52); Alkaline Phosphatase 148 U/L (34-104); Anion Gap 9 (3-11); Aspartate Aminotransferase 101 U/L (13-39); BUN Creatinine Ratio 9.8 (10-20); Bilirubin,Total 2.6 mg/dl (0.2-1.0); Blood Urea Nitrogen 4 mg/dl (6-23); Carbon Dioxide 21 mmol/L (21-32); Chloride 106 mmol/L (98-107); Est GFR (African American) > 150.0 ml/min; Est GFR (Non-African American) 131.1 ml/min; Globulin 2.9 gm/dl (2.5-4.0); Glucose 75 mg/dl (70-99(Fasting)); Potassium 2.9 mmol/L (3.5-5.1); Sodium 136 mmol/L (136-145); Total Protein 5.9 gm/dl (6.0-8.3)
--- NOTE | 2023-07-15 12:31 | History & Physical Report ---
Date of Service July 15, 2023 Assessment & Plan (1) Sickle cell crisis: Plan: [facility] Vital signs as protocol Activity as tolerated Regular diet Pain management with Dilaudid 0.5 mg every 2hrs as needed IV fluids Hematology consult (2) : Plan: Patient is followed by obstetrics Patient is 33 weeks gestation at this time. Will continue medications (3) High risk due to history of previous obstetrical problem: (4) Hip pain, acute: Plan: Pain management with Dilaudid as needed (5) Sickle cell trait: Admission and Anticipated Discharge Date Admission Date: Plan will be to manage patient over the next 48 hours with pain management with Dilaudid and IV hydration History of Present Illness Chief Complaint: 37-year-old female with history of sickle cell anemia, 33 weeks of gestation presented with complaints of right hip pain Primary Care Provider: Amanda Randall MD 37-year-old female history of sickle anemia, 33 weeks of gestation presented with complaints of right hip pain over the past week as well as left lower extremity pain. Patient was seen in a hospital in [place] admitted and discharged last Saturday. Patient was asked to take pain medications for a sickle cell pain however she was unable to fill her prescription. Over the past few days her symptoms have gotten worse and hence came to the ER for evaluation. During her hospital stay in [place] she also had chest pains. She was seen by obstetrics and evaluated and cleared for further medical management. Patient was started on IV fluids in the ER and was given a dose of Dilaudid 0.5 mg after which her symptoms seem to have improved. She denies any shortness of breath or chest pain at this time. Her initial pain was a 10 on 10 and at this point is a 6 /10. No fevers, cough. She has been taking her meds as prescribed. Patient has been regularly following up with her MANAGER NICU. Allergies Allergy/AdvReac Type Severity Reaction Status Date / Time No Known Allergies Allergy Verified 07/15/23 11:25 Home Medications Medication Instructions Recorded Confirmed Type folic acid 1 mg tablet 1 mg PO DAILY 06/14/23 07/15/23 History pediatric multivitamin no.76 1 tab PO DAILY 06/14/23 07/15/23 History (Flintstones Complete chewable tablet) acetaminophen 325 mg tablet 650 mg PO DIRECTED PRN Pain 07/15/23 07/15/23 History Past Med/Surg History Medical History Medical marijuana use Treatment for sickle cell pain before . Quit using while . Beta thalassemia trait Sickle cell trait Surgical History Hx laparoscopic cholecystectomy (02/15/23) Laparoscopic Cholecystectomy(Not Applicable) - Leander Laboy, DO Family History Denies family history of Ovarian cancer Breast cancer Colorectal cancer Social History Smoking Status: Never smoker Do You Dip or Chew Tobacco: No; Hx Alcohol Use: No Hx Substance Use: No Preferred Language: Danish Communication Ability: Effective Visual Impairment: No Limitations Hearing Ability: Normal Crop Duster Required: No Beliefs That Will Affect Care: None marital status: Single marital status details: Steffen Solorio Current Living Situation: Significant Other Current Living Situation Comment: 14 yo Margot Mckay, Steffen Solorio - signficaint other current occupational status: employed current occupation: [employer] Feels Safe at Home: Yes Diet: regular Assistive Devices: None Review of Systems Review of Systems: Reviewed all systems as noted in H/P , rest reviewed as negative Physical Exam Physical Exam: HEENT:No JVD , Normocephalic , atraumatic CV: S1/S2+ , no murmurs Resp: Air entry present bilaterally.no crackles, no wheeze . GI: Abdomen patient is 33 weeks gestation . Musculoskeletal: examined for joint tenderness. Skin: no rashes Psych: Normal affect Neuro: Patient is awake alert not in distress , No focal neuro deficits noted Ext: no edema. right hip tenderness+ Results & Data Results & Data Vital Signs (Past 12 Hours) Vital Signs Temp Pulse Pulse Resp BP BP Pulse Ox 07/15/23 12:00 71 18 95/63 L 100 07/15/23 10:03 36.6 C 75 18 131/88 100 O2 Del Method 07/15/23 12:00 Room Air 07/15/23 10:03 Room Air Laboratory Results Laboratory Results Reticulocyte % (Auto) 4.90 % (0.50-2.00) H 07/15/23 08:42 Reticulocyte # 0.140 10^6/uL (0.020-0.100) H 07/15/23 08:42 Diagnostic Findings Home Medications Medication Instructions Recorded Confirmed folic acid 1 mg tablet 1 mg PO DAILY 06/14/23 07/15/23 pediatric multivitamin no.76 1 tab PO DAILY 06/14/23 07/15/23 (Flintstones Complete chewable tablet) acetaminophen 325 mg tablet 650 mg PO DIRECTED PRN Pain 07/15/23 07/15/23 Medications Administered 07/15/23 08:42 Reticulocyte % (Auto) 4.90 H Reticulocyte # 0.140 H Code Status & VTE Plan Code Status Patient is a full code VTE Prophylaxis Plan VTE Prophylaxis will be ordered: Yes
[2023-07-15] MEDS ORDERED: ACETAMINOPHEN 325 MG TAB PO PRN (13:11)
[2023-07-15] MEDS ORDERED: HYDROmorphone INJ 0.5 MG/0.5 ML SYR IV PRN (13:11)
[2023-07-15] MEDS ORDERED: ONDANSETRON INJ 2 MG/ML 2 ML VIAL IV PRN (13:11)
[2023-07-15] MEDS: SODIUM CHLORIDE 0.9% 1,000 ML IV SCH ×2 (13:35→20:49)
[2023-07-15] MEDS: HYDROmorphone INJ 0.5 MG/0.5 ML SYR IV PRN ×4 (15:40→23:20)
[2023-07-16] MEDS ORDERED: ACETAMINOPHEN W/CODEINE #3 1 TAB PO PRN (02:49)
[2023-07-16] MEDS: HYDROmorphone INJ 0.5 MG/0.5 ML SYR IV PRN ×9 (03:06→22:37)
[2023-07-16] MEDS: SODIUM CHLORIDE 0.9% 1,000 ML IV SCH ×3 (04:52→20:09)
[2023-07-16 06:45] LABS: Alanine Aminotransferase 89 U/L (7-52); Albumin Level 2.7 gm/dl (3.4-5.0); Alkaline Phosphatase 134 U/L (34-104); Anion Gap 7 (3-11); Aspartate Aminotransferase 81 U/L (13-39); BUN Creatinine Ratio 10.8 (10-20); Bilirubin,Total 2.1 mg/dl (0.2-1.0); Blood Urea Nitrogen 4 mg/dl (6-23); Calcium 7.7 mg/dl (8.6-10.3); Carbon Dioxide 22 mmol/L (21-32); Chloride 107 mmol/L (98-107); Creatinine Clr Calc Pharmacy 223.3 ml/min; Est GFR (African American) > 150.0 ml/min; Est GFR (Non-African American) 135.6 ml/min; Globulin 2.8 gm/dl (2.5-4.0); Glucose 91 mg/dl (70-99(Fasting)); Sodium 136 mmol/L (136-145); Total Protein 5.5 gm/dl (6.0-8.3)
[2023-07-16] MEDS: FOLIC ACID 1 MG TAB PO SCH (09:01)
[2023-07-16] MEDS: MULTIVITAMIN CHEWABLE TAB PO SCH (09:01)
--- NOTE | 2023-07-16 09:02 | Oncology Consultation ---
Date of Consultation July 16, 2023 Assessment & Plan (1) Sickle cell crisis: For sickle cell pain crisis continue the patient on appropriate pain medication. Continue IV fluids. The patient does not want to be on hydroxyurea, otherwise I do not see an indication for hydroxyurea as the patient is currently 33 weeks . She has very intermittent sickle cell crisis only at the time of change of weather. She can be followed on an outpatient basis with a veneer sorter. Otherwise at this point I would recommend supportive care including IV fluids and appropriate pain medication (2) Anemia: Patient is 33 weeks , will recommend checking iron indicis as she may very well be iron deficient. Transfuse for hemoglobin less than 7 g/dL.. Continue vitamin supplementation Plan Thank you for this interesting consult, hematology will continue to follow the patient and make appropriate recommendations History of Present Illness Attending Physician: Charity Mcgee MD History of Present Illness The patient is a very pleasant 37-year-old woman who is currently 33 weeks , has a history of sickle cell disease, previously managed at a hospital in [place]. She was discharged last Saturday. She was complaining of left shoulder, left lower extremity pain. She has not been able to take her pain medication for sickle cell pain crisis. When she came to the hospital here her hemoglobin was 8.4 g/dL. She is not actively bleeding. She is 33 weeks . Reports no other symptoms outside of severe pain. Reports no fever or chills. She is on vitamin, however I am not sure about iron supplementation. She is currently on IV fluids and Dilaudid and has noticed some improvement in her pain Allergies Allergy/AdvReac Type Severity Reaction Status Date / Time No Known Allergies Allergy Verified 07/15/23 11:25 Home Medications Medication Instructions Recorded Confirmed Type folic acid 1 mg tablet 1 mg PO DAILY 06/14/23 07/15/23 History pediatric multivitamin no.76 1 tab PO DAILY 06/14/23 07/15/23 History (Flintstones Complete chewable tablet) acetaminophen 325 mg tablet 650 mg PO DIRECTED PRN Pain 07/15/23 07/15/23 History Patient History Medical History Medical marijuana use Treatment for sickle cell pain before . Quit using while . 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 Beliefs That Will Affect Care: None marital status: Single marital status details: Steffen Solorio Current Living Situation: Spouse Current Living Situation Comment: and 1 child current occupational status: employed current occupation: [employer] Feels Safe at Home: Yes Safety Concerns: Feels Safe At This Time Diet: regular Assistive Devices: None Results & Data Vital Signs (Past 12 Hours) Vital Signs Temp Pulse Pulse Resp BP BP Pulse Ox 07/16/23 07:50 36.9 C 96 H 18 103/63 95 07/16/23 07:17 69 07/16/23 04:00 36.6 C 76 18 119/69 100 07/16/23 00:22 87 07/16/23 00:00 36.5 C 80 18 111/77 100 O2 Del Method 07/16/23 07:50 Room Air 07/16/23 07:17 07/16/23 04:00 Room Air 07/16/23 00:22 07/16/23 00:00 Room Air
[2023-07-16] MEDS ORDERED: POTASSIUM CHLORIDE CRTAB 20 MEQ TABCR PO STA (09:04)
--- NOTE | 2023-07-16 14:44 | Hospitalist Progress Note ---
Date of Service July 16, 2023 Assessment & Plan (1) Sickle cell crisis: Plan: Admittef to [facility] Vital signs as protocol Activity as tolerated Regular diet Pain management with Dilaudid 1 mg every 2hrs as needed IV fluids Hematology consult, await recs Patient reports some improvement in her pain, reports feeling better. (2) : Plan: Patient is followed by obstetrics Patient is 33 weeks gestation at this time. Will continue medications Gynecology consult, await recs (3) High risk due to history of previous obstetrical problem: (4) Hip pain, acute: Plan: Pain management with Dilaudid as needed (5) Sickle cell trait: Admission and Anticipated Discharge Date Admission Date: July 15, 2023 Subjective Patient was seen and examined at bedside. Patient was lying in bed, on room air, resting comfortably, NAD. Patient reports improving bilateral inner thigh pain. But is still significant. Patient reports eating okay and moving bowels okay, denies other ROS. 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 Physical Exam Physical Exam: HEENT:No JVD , Normocephalic , atraumatic CV: S1/S2+ , no murmurs Resp: Air entry present bilaterally.no crackles, no wheeze . GI: Abdomen patient is 33 weeks gestation . Musculoskeletal: examined for joint tenderness. Skin: no rashes Psych: Normal affect Neuro: Patient is awake alert not in distress , No focal neuro deficits noted Ext: no edema. right hip tenderness+ Results & Data Results & Data Vital Signs (Past 12 Hours) Vital Signs Temp Pulse Pulse Resp BP BP Pulse Ox 07/16/23 11:16 36.8 C 69 18 116/68 99 07/16/23 07:50 36.9 C 96 H 18 103/63 95 07/16/23 07:17 69 07/16/23 04:00 36.6 C 76 18 119/69 100 O2 Del Method 07/16/23 11:16 Room Air 07/16/23 07:50 Room Air 07/16/23 07:17 07/16/23 04:00 Room Air
[2023-07-17] MEDS: HYDROmorphone INJ 0.5 MG/0.5 ML SYR IV PRN ×6 (02:10→19:33)
[2023-07-17] MEDS: SODIUM CHLORIDE 0.9% 1,000 ML IV SCH ×3 (03:56→19:33)
[2023-07-17 06:27] LABS: Anion Gap 6 (3-11); BUN Creatinine Ratio 10.3 (10-20); Blood Urea Nitrogen 4 mg/dl (6-23); Calcium 7.9 mg/dl (8.6-10.3); Carbon Dioxide 22 mmol/L (21-32); Chloride 108 mmol/L (98-107); Creatinine Clr Calc Pharmacy 214.6 ml/min; Est GFR (African American) > 150.0 ml/min; Est GFR (Non-African American) 133.2 ml/min; Glucose 83 mg/dl (70-99(Fasting)); Magnesium 1.6 mg/dl (1.7-2.4); Phosphorus 3.5 mg/dl (2.5-4.9); Potassium 3.3 mmol/L (3.5-5.1); Sodium 136 mmol/L (136-145)
[2023-07-17 06:53] LABS: Hematocrit (blood only) 21.8 % (37.0-47.0); Hemoglobin 7.1 g/dl (12.0-16.0); Mean Corpuscular Hemoglobin 28.2 pg (25.0-34.0); Mean Corpuscular Hgb Conc 32.6 g/dL (32.0-36.0); Mean Corpuscular Volume 86.5 fL (80.0-100.0); Mean Platelet Volume 10.2 fL (9.4-12.4); Nucleated RBC # (auto) 2.57 K/uL (0.00-0.12); Nucleated RBC % (auto) 29.8 %; Platelet Count 87 K/uL (130-400); RDW Coefficient of Variation 16.5 % (11.5-14.5); RDW Standard Deviation 47.3 fL (36.4-46.3); Red Blood Count 2.52 M/uL (4.20-5.40); White Blood Count 8.62 K/ul (4.8-10.8)
[2023-07-17] MEDS ORDERED: POTASSIUM CHLORIDE CRTAB 20 MEQ TABCR PO STA (07:40)
[2023-07-17] MEDS: FOLIC ACID 1 MG TAB PO SCH (07:45)
[2023-07-17] MEDS: MULTIVITAMIN CHEWABLE TAB PO SCH (07:45)
[2023-07-17] MEDS ORDERED: AMMONIUM LACTATE 12% LOTION 225 GM BTL EXT PRN (09:52)
[2023-07-17] MEDS: MAGNESIUM SULFATE / D5W 1 GM/100 ML BAG IV SCH ×3 (09:58→13:27)
--- NOTE | 2023-07-17 16:10 | Hospitalist Progress Note ---
Date of Service July 17, 2023 Assessment & Plan (1) Sickle cell crisis: (2) : (3) High risk due to history of previous obstetrical problem: (4) Hip pain, acute: Plan: Pain management with Dilaudid as needed Plan Ms. Turner is a 37 year old woman with sickle cell disease who is 33 weeks admitted for management of sickle cell crisis Patient with complicated 2/2 multiple admissions for cholecystitis and sickle cell. Patient improving slowly but notes ongoing hip pain. Patient hesitant for transfusion given concern for exacerbated crisis after last transfusion in [facility] where she was recently hospitalized for crisis #Sickle Cell Crisis #Acute anemia iso sickle cell Admitted to [facility] Vital signs as protocol Activity as tolerated Regular diet Pain management with Dilaudid 1 mg every 2hrs as needed -Encourage PO pain regimen with Oxycodone for moderate pain to ween from IV as able Continue IV fluids Hematology consult -Hgb 7.1 this am, will hold on transfusion at this time -Continue supportive management -Trend hgb, order Iron studies -Continue #Arm pain, humeral osteonecrosis #Left hip pain, concern for osteonecrosis -Continue sparing pain management -Recommend close follow up with OP orthopedics/data transcriber to discuss management of osteonecrosis s/p delivery #, 33 weeks #high risk Patient is followed by obstetrics Will continue medications Gynecology consult, await recs for any further management DVT compression stockings, wishing to trial SCDs Dispo contingent on pain control, attempting oral regimen--as well as hgb stablility Admission and Anticipated Discharge Date Admission Date: July 15, 2023 Subjective NAEO Reports symptoms are no better/no worse overall Left hip pain notable, difficulty ambulating--timed medication prior to ambulation with notable improvement Physical Exam Constitutional: WD/WN, vitals as above Respiratory: normal respiratory effort, lungs clear to auscultation Gastrointestinal (Abdomen): soft, distended 2/2 Musculoskeletal: trace BLE edema Results & Data Results & Data Vital Signs (Past 12 Hours) Vital Signs Temp Pulse Pulse Resp BP BP Pulse Ox 07/17/23 15:37 36.7 C 82 18 137/78 100 07/17/23 11:35 36.5 C 72 18 117/76 99 07/17/23 07:56 07/17/23 07:39 36.9 C 75 18 130/85 100 07/17/23 07:36 64 07/17/23 04:11 36.6 C 80 18 125/70 98 O2 Del Method 07/17/23 15:37 Room Air 07/17/23 11:35 Room Air 07/17/23 07:56 Room Air 07/17/23 07:39 Room Air 07/17/23 07:36 07/17/23 04:11 Room Air Laboratory Results Short CBC 07/17/23 Range/Units 05:31 WBC 8.62 (4.8-10.8) K/ul Hgb 7.1 L (12.0-16.0) g/dl Hct 21.8 L (37.0-47.0) % Plt Count 87 L (130-400) K/uL BMP 07/17/23 05:31 Sodium 136 Potassium 3.3 L Chloride 108 H Carbon Dioxide 22 BUN 4 L Creatinine 0.39 L Glucose 83 Calcium 7.9 L Medications Administered Home Medications Medication Instructions Recorded Confirmed Last Taken folic acid 1 mg tablet 1 mg PO DAILY 06/14/23 07/15/23 07/14/23 12:00 pediatric multivitamin no.76 1 tab PO DAILY 06/14/23 07/15/23 07/14/23 12:00 (Flintstones Complete chewable tablet) acetaminophen 325 mg tablet 650 mg PO DIRECTED PRN Pain 07/15/23 07/15/23 Unknown Active Medications Generic Name Dose Route Start Last Admin Trade Name Marcelinoq PRN Reason Stop Dose Admin Folic Acid 1 mg 07/16/23 09:00 07/17/23 07:45 Folic Acid 1 Mg Tab PO 08/15/23 08:59 1 mg DAILY SHWETA Administration Hydromorphone HCl 1 mg 07/15/23 14:38 07/17/23 15:41 Hydromorphone Inj 0.5 Mg/0.5 Ml Syr IV 07/29/23 13:10 1 mg Q2H PRN Administration Severe Pain (Scale 7, 8, 9,10) Sodium Chloride 1,000 mls @ 125 mls/hr 07/15/23 13:11 07/17/23 11:33 Nss IV 08/14/23 13:10 125 mls/hr .Q8H SHWETA Administration Lactic Acid 1 gm 07/17/23 09:52 07/17/23 10:47 Ammonium Lactate 12% Lotion 225 Gm Btl EXT 08/16/23 09:51 1 gm Q4H PRN Administration dry skin Multivitamins/Folic Acid/Vitamin C 1 tab 07/16/23 09:00 07/17/23 07:45 Multivitamin Chewable Tab PO 08/15/23 08:59 1 tab DAILY SHWETA Administration
[2023-07-17] MEDS ORDERED: oxyCODONE HCL IR 5 MG TAB (IMMEDIATE RELEASE) PO PRN (16:18)
[2023-07-17] MEDS ORDERED: ACETAMINOPHEN 325 MG TAB PO PRN (16:21)
[2023-07-18] MEDS: HYDROmorphone INJ 0.5 MG/0.5 ML SYR IV PRN ×3 (01:06→12:27)
[2023-07-18] MEDS: SODIUM CHLORIDE 0.9% 1,000 ML IV SCH ×2 (03:35→12:20)
[2023-07-18 06:45] LABS: Anion Gap 7 (3-11); BUN Creatinine Ratio 12.8 (10-20); Blood Urea Nitrogen 5 mg/dl (6-23); Calcium 7.9 mg/dl (8.6-10.3); Carbon Dioxide 20 mmol/L (21-32); Chloride 109 mmol/L (98-107); Creatinine Clr Calc Pharmacy 214.6 ml/min; Est GFR (African American) > 150.0 ml/min; Est GFR (Non-African American) 133.2 ml/min; Glucose 77 mg/dl (70-99(Fasting)); Iron 187 mcg/dl (35-150); Potassium 3.4 mmol/L (3.5-5.1); Sodium 136 mmol/L (136-145); Total Iron Binding Cap Calc 334 mcg/dl (250-450); Transferrin (FE) Percent Satur 56 % (15-50); Unsaturated Iron Binding Cap 147 mcg/dl (155-355)
[2023-07-18 07:04] LABS: Ferritin 453.2 ng/ml (8-388)
[2023-07-18 07:09] LABS: Hematocrit (blood only) 19.3 % (37.0-47.0); Hemoglobin 6.6 g/dl (12.0-16.0); Mean Corpuscular Hemoglobin 29.1 pg (25.0-34.0); Mean Corpuscular Hgb Conc 34.2 g/dL (32.0-36.0); Platelet Count 98 K/uL (130-400); RDW Coefficient of Variation 17.2 % (11.5-14.5); RDW Standard Deviation 49.4 fL (36.4-46.3); Red Blood Count 2.27 M/uL (4.20-5.40); White Blood Count 9.33 K/ul (4.8-10.8)
[2023-07-18 07:10] LABS: Folate (Folic Acid),Ser orPlas 19.69 ng/ml (>5.38)
[2023-07-18] MEDS ORDERED: POTASSIUM CHLORIDE CRTAB 20 MEQ TABCR PO STA (08:03)
--- NOTE | 2023-07-18 08:15 | Obstetrical Progress Note ---
Date of Service July 18, 2023 Assessment & Plan (1) 34 weeks gestation of : Plan: NST q shift Consider transfer due to and need for NICU and MFM care at higher level of care (ie [facility])-called transfer service and discussed with Dr. Cavazos, who barbie mmend that if patient is stable from obstetrical standpoint, continue to treat sickle cell crisis at outlying facility. But she will reach out to MFM who will call me back further recommendations Deliver if OB concern (2) Gestational hypertension: Plan: Noted by elevated BP >140/90 by 4 hors apart CBC, CMP already done Urine protein creatine ratio ordered Delivery at 37 0/7 weeks-scheduled for induction at [facility] on . Patient given information in the room (3) Sickle cell crisis: Plan: Continue plan per medicine. Will need a transfusion this morning Appreciate medicine's help in managing this patient throughout this admission Admission and Anticipated Discharge Date Admission Date: July 15, 2023 Subjective Met patient for first time, and hospitalist was at bedside as well during her rounds. Patient's pain is better controlled at this time. Denies any contractions, leaking of fluid or vaginal bleeding. Notes good movement. Discussed at bedside plan of care with hospitalist and patient. Discussed recommendation for transfer as patient is , and the need for MFM on board. Patient desires transfer but is worried about transportation and issues with childcare for her teenager. Patient does not have a car. She is accepting of a social service consult at this time After I called the transfer service, and discussed with [facility], she was scheduled for induction on 08/08/2023 at [facility] for induction at 37 weeks for gestational hypertension. Patient is tearful that she states she was feeling lied to by other provider saying she would deliver at 39 weeks. She is concerned as she just found out about her osteonecrosis of her hip, and her shoulder issues. She is having issues with her mother and communicating to her fianc at this time. She is extremely tearful and upset. Physical Exam Constitutional: General: Alert, no acute distress, tearful Respiratory: normal respiratory effort, lungs clear to auscultation Cardiovascular: RRR, no murmur, no edema Gastrointestinal (Abdomen): normal bowel sounds, soft, nontender, no hepatosplenomegaly Gravid uterus Results & Data Vital Signs (Past 12 Hours) Vital Signs Temp Pulse Resp BP Pulse Ox O2 Del Method 07/18/23 00:30 36.8 C 88 18 143/82 H 100 Room Air Diagnostic Findings Laboratory Results WBC 9.33 K/ul (4.8-10.8) 07/18/23 05:47 RBC 2.27 M/uL (4.20-5.40) L 07/18/23 05:47 Hgb 6.6 g/dl (12.0-16.0) L* 07/18/23 05:47 Hct 19.3 % (37.0-47.0) L* 07/18/23 05:47 MCV 85.0 fL (80.0-100.0) 07/18/23 05:47 MCH 29.1 pg (25.0-34.0) 07/18/23 05:47 MCHC 34.2 g/dL (32.0-36.0) 07/18/23 05:47 RDW Std Deviation 49.4 fL (36.4-46.3) H 07/18/23 05:47 RDW Coeff of John 17.2 % (11.5-14.5) H 07/18/23 05:47 Plt Count 98 K/uL (130-400) L 07/18/23 05:47 MPV 11.0 fL (9.4-12.4) 07/18/23 05:47 Reticulocyte % (Auto) 4.90 % (0.50-2.00) H 07/15/23 08:42 Reticulocyte # 0.140 10^6/uL (0.020-0.100) H 07/15/23 08:42 Absolute Nucleated RBC 5.60 K/uL (0.00-0.12) H 07/18/23 05:47 Nucleated RBC % (auto) 60.0 % 07/18/23 05:47 Sodium 136 mmol/L (136-145) 07/18/23 05:47 Potassium 3.4 mmol/L (3.5-5.1) L 07/18/23 05:47 Chloride 109 mmol/L (98-107) H 07/18/23 05:47 Carbon Dioxide 20 mmol/L (21-32) L 07/18/23 05:47 Anion Gap 7 (3-11) 07/18/23 05:47 BUN 5 mg/dl (6-23) L 07/18/23 05:47 Creatinine 0.39 mg/dl (0.6-1.2) L 07/18/23 05:47 Est Cr Clr Drug Dosing 214.6 ml/min 07/18/23 05:47 Est GFR ( Amer) > 150.0 ml/min 07/18/23 05:47 Est GFR (Non-Af Amer) 133.2 ml/min 07/18/23 05:47 BUN/Creatinine Ratio 12.8 (10-20) 07/18/23 05:47 Glucose 77 mg/dl (70-99(Fasting)) 07/18/23 05:47 Calcium 7.9 mg/dl (8.6-10.3) L 07/18/23 05:47 Phosphorus 3.5 mg/dl (2.5-4.9) 07/17/23 05:31 Magnesium 1.6 mg/dl (1.7-2.4) L 07/17/23 05:31 Iron 187 mcg/dl (35-150) H 07/18/23 05:47 TIBC 334 mcg/dl (250-450) 07/18/23 05:47 Unsaturated IBC 147 mcg/dl (155-355) L 07/18/23 05:47 Transferrin % Sat 56 % (15-50) H 07/18/23 05:47 Ferritin 453.2 ng/ml (8-388) H 07/18/23 05:47 Total Bilirubin 2.1 mg/dl (0.2-1.0) H 07/16/23 05:22 AST 81 U/L (13-39) H 07/16/23 05:22 ALT 89 U/L (7-52) H 07/16/23 05:22 Alkaline Phosphatase 134 U/L (34-104) H 07/16/23 05:22 Total Protein 5.5 gm/dl (6.0-8.3) L 07/16/23 05:22 Albumin 2.7 gm/dl (3.4-5.0) L 07/16/23 05:22 Globulin 2.8 gm/dl (2.5-4.0) 07/16/23 05:22 Albumin/Globulin Ratio 1.0 (0.9-2) 07/16/23 05:22 Vitamin B12 101 pg/ml (180-914) L 07/18/23 05:47 Folate 19.69 ng/ml (>5.38) 07/18/23 05:47 (2) Gestational hypertension Trimester: third trimester Qualified Code(s): O13.3 - Gestational [- induced] hypertension without significant proteinuria, third trimester
[2023-07-18] MEDS: CYANOCOBALAMIN (B-12) 500 MCG TABLET PO SCH (08:25)
[2023-07-18] MEDS: PRENATAL VITAMIN 1 TAB ONE ×2 (08:41→11:37)
[2023-07-18] MEDS ORDERED: SODIUM CHLORIDE 0.9% 250 ML IV PRN (08:43)
[2023-07-18] MEDS ORDERED: DOCUSATE SODIUM 100 MG CAP PO ONE (08:44)
--- NOTE | 2023-07-18 10:48 | Hospitalist Progress Note ---
Date of Service July 18, 2023 Assessment & Plan (1) Sickle cell crisis: (2) : (3) High risk due to history of previous obstetrical problem: (4) Hip pain, acute: Plan: Pain management with Dilaudid as needed Plan Ms. Turner is a 37 year old woman with sickle cell disease who is 33 weeks admitted for management of sickle cell crisis Patient with complicated 2/2 multiple admissions for cholecystitis and sickle cell. Patient improving slowly but notes ongoing hip pain. Patient hesitant for transfusion given concern for exacerbated crisis after last transfusion in [facility] where she was recently hospitalized for crisis Hemoglobin now 6.6. Patient will accept transfer. #Sickle Cell Crisis #Acute anemia iso sickle cell Admitted to [facility] Vital signs as protocol Activity as tolerated Regular diet Pain management with Dilaudid 1 mg every 2hrs as needed -Encourage PO pain regimen with Oxycodone for moderate pain to ween from IV as able Continue IV fluids Hematology consult -Hgb 6.6 this am, ordered 1 UPRBC, to arrive 1999 this evening -Continue supportive management -Trend hgb, Iron studies with above average indicies, B12 low -Start b12 supplementation -Continue #Arm pain, humeral osteonecrosis #Left hip pain, concern for osteonecrosis -Continue sparing pain management -Recommend close follow up with OP orthopedics/typesetter perforator operator to discuss management of osteonecrosis s/p delivery #, 33 weeks #high risk Patient is followed by obstetrics Will continue medications Gynecology consult, await recs for any further management DVT compression stockings, wishing to trial SCDs Dispo contingent on pain control, attempting oral regimen--as well as hgb stability Admission and Anticipated Discharge Date Admission Date: July 15, 2023 Subjective NAEO Downtrending hgb, 6.6-- unit ordered, will arrive 8pm Patient emotional today, reporting missing son as well as upset with other interpersonal issues ongoing. Denies any chest pain, endorses some lingering hip pain. Physical Exam Constitutional: tearful, upset--but conversational Respiratory: normal respiratory effort, lungs clear to auscultation Gastrointestinal (Abdomen): NST running, no contractions noted Results & Data Results & Data Vital Signs (Past 12 Hours) Vital Signs Temp Pulse Resp BP BP Pulse Ox Pulse Ox 07/18/23 09:46 99 07/18/23 09:38 36.7 C 75 18 138/85 99 07/18/23 00:30 36.8 C 88 18 143/82 H 100 O2 Del Method O2 Del Method 07/18/23 09:46 Room Air 07/18/23 09:38 Room Air 07/18/23 00:30 Room Air Laboratory Results Short CBC 07/18/23 Range/Units 05:47 WBC 9.33 (4.8-10.8) K/ul Hgb 6.6 L* (12.0-16.0) g/dl Hct 19.3 L* (37.0-47.0) % Plt Count 98 L (130-400) K/uL BMP 07/18/23 05:47 Sodium 136 Potassium 3.4 L Chloride 109 H Carbon Dioxide 20 L BUN 5 L Creatinine 0.39 L Glucose 77 Calcium 7.9 L Medications Administered Home Medications Medication Instructions Recorded Confirmed Last Taken folic acid 1 mg tablet 1 mg PO DAILY 06/14/23 07/15/23 07/14/23 12:00 pediatric multivitamin no.76 1 tab PO DAILY 06/14/23 07/15/23 07/14/23 12:00 (Flintstones Complete chewable tablet) acetaminophen 325 mg tablet 650 mg PO DIRECTED PRN Pain 07/15/23 07/15/23 Unknown Active Medications Generic Name Dose Route Start Last Admin Trade Name Freq PRN Reason Stop Dose Admin Cyanocobalamin 1,000 mcg 07/18/23 09:00 07/18/23 08:25 Cyanocobalamin (B-12) 500 Mcg Tablet PO 08/17/23 08:59 1,000 mcg QAM SHWETA Administration Folic Acid 1 mg 07/16/23 09:00 07/17/23 07:45 Folic Acid 1 Mg Tab PO 08/15/23 08:59 1 mg DAILY SHWETA Administration Hydromorphone HCl 1 mg 07/15/23 14:38 07/18/23 05:40 Hydromorphone Inj 0.5 Mg/0.5 Ml Syr IV 07/29/23 13:10 1 mg Q2H PRN Administration Severe Pain (Scale 7, 8, 9,10) Sodium Chloride 1,000 mls @ 125 mls/hr 07/15/23 13:11 07/18/23 03:35 Nss IV 08/14/23 13:10 125 mls/hr .Q8H SHWETA Administration Lactic Acid 1 gm 07/17/23 09:52 07/17/23 10:47 Ammonium Lactate 12% Lotion 225 Gm Btl EXT 08/16/23 09:51 1 gm Q4H PRN Administration dry skin Multivitamins/Folic Acid/Vitamin C 1 tab 07/16/23 09:00 07/17/23 07:45 Multivitamin Chewable Tab PO 08/15/23 08:59 1 tab DAILY SHWETA Administration Oxycodone HCl 5 mg 07/17/23 16:18 07/18/23 09:51 Oxycodone Hcl Ir 5 Mg Tab (Immediate Release) PO 07/31/23 16:17 5 mg Q4H PRN Administration Moderate Pain (Scale 4, 5, 6)
[2023-07-18 11:31] LABS: Creatinine Urine Random 84.2 mg/dl; Protein Creatinine Ratio Urine 0.2 (0-0.2); Total Protein Urine Random 20.3 mg/dl (0-11.9)
[2023-07-18] MEDS: FOLIC ACID 1 MG TAB PO SCH (11:37)
[2023-07-18] MEDS: MULTIVITAMIN CHEWABLE TAB PO SCH (11:37)
[2023-07-18] MEDS: oxyCODONE HCL IR 5 MG TAB (IMMEDIATE RELEASE) PO PRN ×2 (15:10→20:17)
[2023-07-18] MEDS: POLYETHYLENE (MIRALAX) 17 GM PACK PO PRN (15:12)
[2023-07-18] MEDS: DOCUSATE SODIUM 100 MG CAP PO SCH (20:16)
[2023-07-19] MEDS: SODIUM CHLORIDE 0.9% 1,000 ML IV SCH ×5 (00:57→21:25)
[2023-07-19] MEDS: oxyCODONE HCL IR 5 MG TAB (IMMEDIATE RELEASE) PO PRN ×5 (01:39→21:08)
[2023-07-19] MEDS: HYDROmorphone INJ 0.5 MG/0.5 ML SYR IV PRN (05:08)
[2023-07-19 07:03] LABS: Hematocrit (blood only) 20.6 % (37.0-47.0); Hemoglobin 7.1 g/dl (12.0-16.0); Mean Corpuscular Hemoglobin 29.7 pg (25.0-34.0); Mean Corpuscular Hgb Conc 34.5 g/dL (32.0-36.0); Mean Corpuscular Volume 86.2 fL (80.0-100.0); Mean Platelet Volume 11.3 fL (9.4-12.4); Nucleated RBC # (auto) 10.69 K/uL (0.00-0.12); Platelet Count 89 K/uL (130-400); RDW Coefficient of Variation 17.2 % (11.5-14.5); RDW Standard Deviation 48.6 fL (36.4-46.3); Red Blood Count 2.39 M/uL (4.20-5.40); White Blood Count 11.14 K/ul (4.8-10.8)
[2023-07-19 07:07] LABS: Anion Gap 6 (3-11); BUN Creatinine Ratio 12.2 (10-20); Blood Urea Nitrogen 5 mg/dl (6-23); Calcium 7.8 mg/dl (8.6-10.3); Carbon Dioxide 20 mmol/L (21-32); Chloride 110 mmol/L (98-107); Creatinine Clr Calc Pharmacy 204.2 ml/min; Est GFR (African American) > 150.0 ml/min; Est GFR (Non-African American) 131.1 ml/min; Glucose 70 mg/dl (70-99(Fasting)); Magnesium 1.6 mg/dl (1.7-2.4); Phosphorus 3.6 mg/dl (2.5-4.9); Potassium 3.5 mmol/L (3.5-5.1); Sodium 136 mmol/L (136-145)
[2023-07-19] MEDS: CYANOCOBALAMIN (B-12) 500 MCG TABLET PO SCH (08:04)
[2023-07-19] MEDS: FOLIC ACID 1 MG TAB PO SCH (08:04)
[2023-07-19] MEDS: MULTIVITAMIN CHEWABLE TAB PO SCH (08:04)
[2023-07-19] MEDS: MAGNESIUM SULFATE / D5W 1 GM/100 ML BAG IV SCH ×2 (08:13→10:00)
--- NOTE | 2023-07-19 09:09 | Obstetrical Progress Note ---
Date of Service July 19, 2023 Assessment & Plan (1) 34 weeks gestation of : (2) Sickle cell crisis: Admission and Anticipated Discharge Date Admission Date: July 15, 2023 Subjective Patient is reevaluated. She feels annoyed due to staying longer than she expected in the hospital and from IV fluids. She thinks her feet are swollen. She still has left hip pain but much better than before. She can walk and ambulate without difficulty. She denies contractions, leakage of fluid, vaginal bleeding. She reports good movements. Her hemoglobin was less than 7 yesterday and she received blood transfusion ordered by medical team. She is still anemic but hemoglobin is over 7.1 now. She denies dizziness, lightheadedness chest pain, shortness of breath. NST 's have been reactive, no contractions on the toco. Her extremities appear normal to me other than slight edema on dorsum of feet, no edema on pretibial regions and Homans' sign is negative bilaterally. Patient desires induction of labor to be done here instead of going to [facility] in [place], [place]. She has growth US with MFM next week. Continue to monitor closely and discharge plans per medical team. 07/19/23 07/18/23 07/18/23 Range/Units 06:18 10:10 09:34 WBC 11.14 H (4.8-10.8) K/ul RBC 2.39 L (4.20-5.40) M/uL Hgb 7.1 L (12.0-16.0) g/dl Hct 20.6 L* (37.0-47.0) % MCV 86.2 (80.0-100.0) fL MCH 29.7 (25.0-34.0) pg MCHC 34.5 (32.0-36.0) g/dL RDW Std Deviation 48.6 H (36.4-46.3) fL RDW Coeff of John 17.2 H (11.5-14.5) % Plt Count 89 L (130-400) K/uL MPV 11.3 (9.4-12.4) fL Absolute Nucleated RBC 10.69 H (0.00-0.12) K/uL Nucleated RBC % (auto) 96.0 % Sodium 136 (136-145) mmol/L Potassium 3.5 (3.5-5.1) mmol/L Chloride 110 H (98-107) mmol/L Carbon Dioxide 20 L (21-32) mmol/L Anion Gap 6 (3-11) BUN 5 L (6-23) mg/dl Creatinine 0.41 L (0.6-1.2) mg/dl Est Cr Clr Drug Dosing 204.2 ml/min Est GFR ( Amer) > 150.0 ml/min Est GFR (Non-Af Amer) 131.1 ml/min BUN/Creatinine Ratio 12.2 (10-20) Glucose 70 (70-99(Fasting)) mg/dl Calcium 7.8 L (8.6-10.3) mg/dl Phosphorus 3.6 (2.5-4.9) mg/dl Magnesium 1.6 L (1.7-2.4) mg/dl Ur Random Creatinine 84.2 mg/dl U Random Total Protein 20.3 H (0-11.9) mg/dl Protein/Creatinin Ratio 0.2 (0-0.2) Blood Type O Positive Blood Type Recheck Antibody Screen NEGATIVE Crossmatch See Detail 07/18/23 Range/Units 05:47 WBC (4.8-10.8) K/ul RBC (4.20-5.40) M/uL Hgb (12.0-16.0) g/dl Hct (37.0-47.0) % MCV (80.0-100.0) fL MCH (25.0-34.0) pg MCHC (32.0-36.0) g/dL RDW Std Deviation (36.4-46.3) fL RDW Coeff of John (11.5-14.5) % Plt Count (130-400) K/uL MPV (9.4-12.4) fL Absolute Nucleated RBC (0.00-0.12) K/uL Nucleated RBC % (auto) % Sodium (136-145) mmol/L Potassium (3.5-5.1) mmol/L Chloride (98-107) mmol/L Carbon Dioxide (21-32) mmol/L Anion Gap (3-11) BUN (6-23) mg/dl Creatinine (0.6-1.2) mg/dl Est Cr Clr Drug Dosing ml/min Est GFR ( Amer) ml/min Est GFR (Non-Af Amer) ml/min BUN/Creatinine Ratio (10-20) Glucose (70-99(Fasting)) mg/dl Calcium (8.6-10.3) mg/dl Phosphorus (2.5-4.9) mg/dl Magnesium (1.7-2.4) mg/dl Ur Random Creatinine mg/dl U Random Total Protein (0-11.9) mg/dl Protein/Creatinin Ratio (0-0.2) Blood Type Blood Type Recheck O Positive Antibody Screen Crossmatch Results & Data Vital Signs (Past 12 Hours) Vital Signs Temp Pulse Pulse Pulse Resp BP BP 07/19/23 07:40 36.8 C 78 14 07/19/23 05:00 37.2 C 71 18 07/19/23 01:33 36.4 C L 145/71 H 07/19/23 01:00 36.4 C L 75 18 146/81 H 07/19/23 00:10 36.7 C 72 18 124/66 07/18/23 23:10 37.4 C 83 20 126/76 07/18/23 22:12 37.8 C H 07/18/23 22:10 37.8 C H 81 18 152/69 H 07/18/23 21:40 37.8 C H 83 18 168/78 H 07/18/23 21:25 37.4 C 79 18 157/73 H 07/18/23 21:08 37.4 C 77 18 141/87 H BP Pulse Ox O2 Del Method 07/19/23 07:40 127/54 L 99 Room Air 07/19/23 05:00 133/74 99 Room Air 07/19/23 01:33 07/19/23 01:00 100 07/19/23 00:10 99 07/18/23 23:10 100 07/18/23 22:12 07/18/23 22:10 100 07/18/23 21:40 99 07/18/23 21:25 99 07/18/23 21:08 99
[2023-07-19] MEDS: DOCUSATE SODIUM 100 MG CAP PO SCH ×2 (10:05→21:08)
[2023-07-19] MEDS: POLYETHYLENE (MIRALAX) 17 GM PACK PO PRN (12:53)
--- NOTE | 2023-07-19 17:55 | Hospitalist Progress Note ---
Date of Service July 19, 2023 Assessment & Plan (1) Sickle cell crisis: (2) : (3) High risk due to history of previous obstetrical problem: (4) Hip pain, acute: Plan: Pain management with Dilaudid as needed Plan Ms. Turner is a 37 year old woman with sickle cell disease who is 33 weeks admitted for management of sickle cell crisis Patient with complicated 2/2 multiple admissions for cholecystitis and sickle cell. Patient improving slowly but notes ongoing hip pain. Patient hesitant for transfusion given concern for exacerbated crisis after last transfusion in [facility] where she was recently hospitalized for crisis Hemoglobin now 6.6. Patient will accept transfer. #Sickle Cell Crisis #Acute anemia iso sickle cell Admitted to [facility] Vital signs as protocol Activity as tolerated Regular diet Pain management with Dilaudid 1 mg every 2hrs as needed -Encourage PO pain regimen with Oxycodone for moderate pain to ween from IV as able Continue IV fluids Hematology consult -Hgb 6.6 07/18, s/p 1 UPRBC, up to 7.1 -Continue supportive management -Trend hgb, Iron studies with above average indicies, B12 low -Continue b12 supplementation -Continue #Arm pain, humeral osteonecrosis #Left hip pain, concern for osteonecrosis -Continue sparing pain management -Recommend close follow up with 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 still with pain but less so than prior notes feet are swollen, discussed discontinuing fluids at this time; preferred reduced rate and perhaps discontinuing the next day Physical Exam Constitutional: WD/WN, vitals as above Respiratory: normal respiratory effort, lungs clear to auscultation Musculoskeletal: bilateral pedal edema Results & Data Results & Data Vital Signs (Past 12 Hours) Vital Signs Temp Pulse Resp BP Pulse Ox O2 Del Method 07/19/23 16:10 37.2 C 85 16 138/84 98 Room Air 07/19/23 07:40 36.8 C 78 14 127/54 L 99 Room Air Laboratory Results Short CBC 07/19/23 Range/Units 06:18 WBC 11.14 H (4.8-10.8) K/ul Hgb 7.1 L (12.0-16.0) g/dl Hct 20.6 L* (37.0-47.0) % Plt Count 89 L (130-400) K/uL BMP 07/19/23 06:18 Sodium 136 Potassium 3.5 Chloride 110 H Carbon Dioxide 20 L BUN 5 L Creatinine 0.41 L Glucose 70 Calcium 7.8 L Medications Administered Home Medications Medication Instructions Recorded Confirmed Last Taken folic acid 1 mg tablet 1 mg PO DAILY 06/14/23 07/15/23 07/14/23 12:00 pediatric multivitamin no.76 1 tab PO DAILY 06/14/23 07/15/23 07/14/23 12:00 (Flintstones Complete chewable tablet) acetaminophen 325 mg tablet 650 mg PO DIRECTED PRN Pain 07/15/23 07/15/23 Unknown Active Medications Generic Name Dose Route Start Last Admin Trade Name Amber PRN Reason Stop Dose Admin Acetaminophen 650 mg 07/17/23 16:21 07/18/23 22:29 Acetaminophen 325 Mg Tab PO 08/14/23 13:10 650 mg Q4H PRN Administration Mild Pain (Scale 1, 2, 3) Cyanocobalamin 1,000 mcg 07/18/23 09:00 07/19/23 08:04 Cyanocobalamin (B-12) 500 Mcg Tablet PO 08/17/23 08:59 1,000 mcg QAM SHWETA Administration Docusate Sodium 100 mg 07/18/23 21:00 07/19/23 10:05 Docusate Sodium 100 Mg Cap PO 08/17/23 20:59 100 mg BID SHWETA Administration Folic Acid 1 mg 07/16/23 09:00 07/19/23 08:04 Folic Acid 1 Mg Tab PO 08/15/23 08:59 1 mg DAILY SHWETA Administration Hydromorphone HCl 1 mg 07/15/23 14:38 07/19/23 05:08 Hydromorphone Inj 0.5 Mg/0.5 Ml Syr IV 07/29/23 13:10 1 mg Q2H PRN Administration Severe Pain (Scale 7, 8, 9,10) Sodium Chloride 1,000 mls @ 75 mls/hr 07/15/23 13:11 07/19/23 10:23 Nss IV 08/14/23 13:10 75 mls/hr .[id number] SHWETA Infusion Lactic Acid 1 gm 07/17/23 09:52 07/17/23 10:47 Ammonium Lactate 12% Lotion 225 Gm Btl EXT 08/16/23 09:51 1 gm Q4H PRN Administration dry skin Multivitamins/Folic Acid/Vitamin C 1 tab 07/16/23 09:00 07/19/23 08:04 Multivitamin Chewable Tab PO 08/15/23 08:59 1 tab DAILY SHWETA Administration Oxycodone HCl 10 mg 07/18/23 14:06 07/19/23 16:59 Oxycodone Hcl Ir 5 Mg Tab (Immediate Release) PO 07/31/23 16:17 10 mg Q4H PRN Administration Moderate Pain (Scale 4, 5, 6) Polyethylene Glycol 17 gm 07/18/23 14:07 07/19/23 12:53 Polyethylene (Miralax) 17 Gm Pack PO 08/17/23 14:06 17 gm DAILY PRN Administration Constipation
[2023-07-19] MEDS: MELATONIN 3 MG TAB PO PRN (23:55)
[2023-07-20] MEDS: oxyCODONE HCL IR 5 MG TAB (IMMEDIATE RELEASE) PO PRN ×5 (01:39→23:57)
[2023-07-20] MEDS: SODIUM CHLORIDE 0.9% 1,000 ML IV SCH ×2 (04:50→12:49)
[2023-07-20 08:27] LABS: Anion Gap 8 (3-11); BUN Creatinine Ratio 11.9 (10-20); Blood Urea Nitrogen 5 mg/dl (6-23); Calcium 8.3 mg/dl (8.6-10.3); Carbon Dioxide 20 mmol/L (21-32); Chloride 108 mmol/L (98-107); Creatinine Clr Calc Pharmacy 199.3 ml/min; Est GFR (African American) > 150.0 ml/min; Glucose 74 mg/dl (70-99(Fasting)); Potassium 3.4 mmol/L (3.5-5.1); Sodium 136 mmol/L (136-145)
[2023-07-20 08:32] LABS: Hemoglobin 7.6 g/dl (12.0-16.0); Mean Corpuscular Hemoglobin 29.8 pg (25.0-34.0); Mean Corpuscular Hgb Conc 34.5 g/dL (32.0-36.0); Mean Corpuscular Volume 86.3 fL (80.0-100.0); Mean Platelet Volume 11.9 fL (9.4-12.4); Nucleated RBC # (auto) 16.61 K/uL (0.00-0.12); Nucleated RBC % (auto) 142.2 %; Platelet Count 102 K/uL (130-400); RDW Coefficient of Variation 18.2 % (11.5-14.5); Red Blood Count 2.55 M/uL (4.20-5.40); White Blood Count 11.68 K/ul (4.8-10.8)
[2023-07-20] MEDS ORDERED: POTASSIUM CHLORIDE CRTAB 20 MEQ TABCR PO STA (08:45)
[2023-07-20] MEDS: DOCUSATE SODIUM 100 MG CAP PO SCH ×2 (09:54→20:59)
[2023-07-20] MEDS: MULTIVITAMIN CHEWABLE TAB PO SCH (09:57)
[2023-07-20] MEDS: CYANOCOBALAMIN (B-12) 500 MCG TABLET PO SCH (09:58)
[2023-07-20] MEDS: POLYETHYLENE (MIRALAX) 17 GM PACK PO SCH ×3 (10:07→20:57)
--- NOTE | 2023-07-20 16:07 | Hospitalist Progress Note ---
Date of Service July 20, 2023 Assessment & Plan (1) Sickle cell crisis: (2) : (3) High risk due to history of previous obstetrical problem: (4) Hip pain, acute: Plan: Pain management with Dilaudid as needed Plan Ms. 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 Patient improving slowly but notes ongoing hip pain. Patient hesitant for transfusion given concern for exacerbated crisis after last transfusion in [facility] where she was recently hospitalized for crisis Hemoglobin now s/p blood transfusion on 07/18. Hgb uptrending. Patient overall reports improvement. #Sickle Cell Crisis #Acute anemia iso sickle cell Admitted to [facility] Vital signs as protocol Activity as tolerated Regular diet Pain management with Dilaudid 1 mg every 2hrs as needed -Encourage PO pain regimen with Oxycodone for moderate pain to ween from IV as able Continue IV fluids Hematology consult -Hgb 6.6 07/18, s/p 1 UPRBC, up to 7.6 today -Continue supportive management -Trend hgb, Iron studies with above average indicies, B12 low -Continue b12 supplementation -Continue #Arm pain, humeral osteonecrosis #Left hip pain, concern for osteonecrosis -Continue sparing pain management -Recommend close follow up with OP orthopedics/human resources file clerk to discuss management of osteonecrosis s/p delivery #, 34 weeks #high risk Patient is followed by obstetrics Will continue medications Gynecology consult, await recs for any further management DVT compression stockings, wishing to trial SCDs Dispo contingent on pain control, attempting oral regimen--as well as hgb stability, plan for dispo tomorrow Admission and Anticipated Discharge Date Admission Date: July 15, 2023 Subjective NAEO Patient worried overall about discharge, scared to return with continued crisis Feels better about reports of hgb being stable, but otherwise still more worried about abdominal tightness Physical Exam Constitutional: WD/WN, vitals as above Respiratory: normal respiratory effort, lungs clear to auscultation Cardiovascular: RRR, no murmur, no edema Musculoskeletal: trace pedal edema Results & Data Results & Data Vital Signs (Past 12 Hours) Vital Signs Temp Pulse Pulse Resp BP BP O2 Del Method 07/20/23 15:43 36.9 C 107 H 16 152/86 H Room Air 07/20/23 15:30 Room Air 07/20/23 10:25 36.9 C 82 22 139/76 07/20/23 09:30 36.9 C 82 22 139/76 Room Air Laboratory Results Short CBC 07/20/23 Range/Units 07:52 WBC 11.68 H (4.8-10.8) K/ul Hgb 7.6 L (12.0-16.0) g/dl Hct 22.0 L (37.0-47.0) % Plt Count 102 L (130-400) K/uL BMP 07/20/23 07:52 Sodium 136 Potassium 3.4 L Chloride 108 H Carbon Dioxide 20 L BUN 5 L Creatinine 0.42 L Glucose 74 Calcium 8.3 L Medications Administered Home Medications Medication Instructions Recorded Confirmed Last Taken folic acid 1 mg tablet 1 mg PO DAILY 06/14/23 07/15/23 07/14/23 12:00 pediatric multivitamin no.76 1 tab PO DAILY 06/14/23 07/15/23 07/14/23 12:00 ([facility]wable [facility]) acetaminophen 325 mg tablet 650 mg PO DIRECTED PRN Pain 07/15/23 07/15/23 Unknown Active Medications Generic Name Dose Route Start Last Admin Trade Name Amber PRN Reason Stop Dose Admin Acetaminophen 650 mg 07/17/23 16:21 07/18/23 22:29 Acetaminophen 325 Mg Tab PO 08/14/23 13:10 650 mg Q4H PRN Administration Mild Pain (Scale 1, 2, 3) Cyanocobalamin 1,000 mcg 07/18/23 09:00 07/20/23 09:58 Cyanocobalamin (B-12) 500 Mcg Tablet PO 08/17/23 08:59 1,000 mcg QAM SHWETA Administration Docusate Sodium 100 mg 07/18/23 21:00 07/20/23 09:54 Docusate Sodium 100 Mg Cap PO 08/17/23 20:59 100 mg BID SHWETA Administration Folic Acid 1 mg 07/16/23 09:00 07/19/23 08:04 Folic Acid 1 Mg Tab PO 08/15/23 08:59 1 mg DAILY SHWETA Administration Hydromorphone HCl 1 mg 07/15/23 14:38 07/19/23 05:08 Hydromorphone Inj 0.5 Mg/0.5 Ml Syr IV 07/29/23 13:10 1 mg Q2H PRN Administration Severe Pain (Scale 7, 8, 9,10) Sodium Chloride 1,000 mls @ 75 mls/hr 07/15/23 13:11 07/20/23 12:49 Nss IV 08/14/23 13:10 75 mls/hr .[id number] SHWETA Administration Lactic Acid 1 gm 07/17/23 09:52 07/17/23 10:47 Ammonium Lactate 12% Lotion 225 Gm Btl EXT 08/16/23 09:51 1 gm Q4H PRN Administration dry skin Melatonin 3 mg 07/18/23 17:47 07/19/23 23:55 Melatonin 3 Mg Tab PO 08/17/23 17:46 3 mg HS PRN Administration Sleep Multivitamins/Folic Acid/Vitamin C 1 tab 07/16/23 09:00 07/20/23 09:57 Multivitamin Chewable Tab PO 08/15/23 08:59 1 tab DAILY SHWETA Administration Oxycodone HCl 10 mg 07/18/23 14:06 07/20/23 15:19 Oxycodone Hcl Ir 5 Mg Tab (Immediate Release) PO 07/31/23 16:17 10 mg Q4H PRN Administration Moderate Pain (Scale 4, 5, 6) Polyethylene Glycol 17 gm 07/20/23 09:00 07/20/23 15:13 Polyethylene (Miralax) 17 Gm Pack PO 08/19/23 08:59 Not Given Q6H SHWETA
[2023-07-20] MEDS: POTASSIUM CHLORIDE CRTAB 20 MEQ TABCR PO SCH (21:00)
[2023-07-20] MEDS: MAGNESIUM OXIDE 400 MG TAB PO SCH (21:01)
[2023-07-20] MEDS: MELATONIN 3 MG TAB PO PRN (23:57)
[2023-07-21] MEDS: SODIUM CHLORIDE 0.9% 1,000 ML IV SCH (00:05)
[2023-07-21] MEDS: POLYETHYLENE (MIRALAX) 17 GM PACK PO SCH ×2 (04:07→08:59)
[2023-07-21] MEDS: oxyCODONE HCL IR 5 MG TAB (IMMEDIATE RELEASE) PO PRN ×2 (04:07→13:41)
[2023-07-21 07:22] LABS: Hemoglobin 6.8 g/dl (12.0-16.0); Mean Corpuscular Hemoglobin 29.6 pg (25.0-34.0); Mean Platelet Volume 12.6 fL (9.4-12.4); Nucleated RBC # (auto) 18.38 K/uL (0.00-0.12); Nucleated RBC % (auto) 175.5 %; Platelet Count 89 K/uL (130-400); RDW Coefficient of Variation 18.7 % (11.5-14.5); RDW Standard Deviation 54.9 fL (36.4-46.3); White Blood Count 10.47 K/ul (4.8-10.8)
[2023-07-21 07:32] LABS: BUN Creatinine Ratio 9.3 (10-20); Creatinine Clr Calc Pharmacy 194.7 ml/min; Est GFR (African American) 149.5 ml/min; Magnesium 1.6 mg/dl (1.7-2.4); Potassium 3.6 mmol/L (3.5-5.1)
[2023-07-21] MEDS ORDERED: SODIUM CHLORIDE 0.9% 250 ML IV PRN (07:33)
[2023-07-21] MEDS: FOLIC ACID 1 MG TAB PO SCH (08:57)
[2023-07-21] MEDS: MULTIVITAMIN CHEWABLE TAB PO SCH (08:58)
[2023-07-21] MEDS: POTASSIUM CHLORIDE CRTAB 20 MEQ TABCR PO SCH (08:58)
[2023-07-21] MEDS: CYANOCOBALAMIN (B-12) 500 MCG TABLET PO SCH (08:58)
[2023-07-21] MEDS: MAGNESIUM OXIDE 400 MG TAB PO SCH (08:59)
[2023-07-21] MEDS: DOCUSATE SODIUM 100 MG CAP PO SCH (09:03)
[2023-07-21 09:08] LABS: Immature Retic Fraction 44.4 % (2.3-15.9); Reticulated Hemoglobin 30.3 pg (28.2-36.6); Reticulocyte % 11.1 % (0.50-2.00); Reticulocytes # 0.25 10^6/uL (0.020-0.100)
[2023-07-21] MEDS: HYDROmorphone INJ 0.5 MG/0.5 ML SYR IV PRN (10:27)
--- NOTE | 2023-07-21 16:59 | Discharge Summary ---
Discharge Summary Date of Service July 21, 2023 Notes For Next Care Provider Please obtain CBC and BMP, Mag in 3-4 days, discuss need for continued K supplementation Medication Changes From Visit -B12, 1,000mcg in morning daily -Magnesium oxide 400mg twice a day -Docusate sodium 100mg twice a day -Potassium chloride 20meq daily, -Oxycodone 5mg, 20 tablets Admission HPI Per Admitting Provider 37-year-old female history of sickle anemia, 33 weeks of gestation presented with complaints of right hip pain over the past week as well as left lower extr emity pain. Patient was seen in a hospital in [place] admitted and discharged last Saturday. Patient was asked to take pain medications for a sickle cell pain however she was unable to fill her prescription. Over the past few days her symptoms have gotten worse and hence came to the ER for evaluation. During her hospital stay in [place] she also had chest pains. She was seen by obstetrics and evaluated and cleared for further medical management. Patient was started on IV fluids in the ER and was given a dose of Dilaudid 0.5 mg after which her symptoms seem to have improved. She denies any shortness of breath or chest pain at this time. Her initial pain was a 10 on 10 and at this point is a 6 /10. No fevers, cough. She has been taking her meds as prescribed. Patient has been regularly following up with her [facility]. Admission Exam Per Admitting Provider HEENT:No JVD , Normocephalic , atraumatic CV: S1/S2+ , no murmurs Resp: Air entry present bilaterally.no crackles, no wheeze . GI: Abdomen patient is 33 weeks gestation . Musculoskeletal: examined for joint tenderness. Skin: no rashes Psych: Normal affect Neuro: Patient is awake alert not in distress , No focal neuro deficits noted Ext: no edema. right hip tenderness+ Principal Dx & Hospital Course #1 = Principal Diagnosis (1) Sickle cell crisis: (2) : (3) High risk due to history of previous obstetrical problem: (4) Hip pain, acute: Pain management with Dilaudid as needed Plan Ms. 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 Patient improving slowly but notes ongoing hip pain. Patient hesitant for transfusion given concern for exacerbated crisis after last transfusion in [facility] where she was recently hospitalized for crisis Hemoglobin now s/p blood transfusion on 07/18. Hgb uptrending. Patient overall reports improvement. Patient able to wean off IV dilaudid and gain good pain control with oral regimen. Hgb on 07/21 notable for 6.8. Patient declined transfusion. Attempted to recommend transfusion not only meeting baseline transfusion requirements of hgb < 7, but also for perfusion purposes for baby, recent sickle crisis, etc. Patient declined and wished for close OP follow up with MFM and if CBC remained abnormal, would reconsider. Patient eager to get out as she feels hospitalization is not helping with poor sleep, but also the stress of her son at home is exacerbating anxiety, as well as some social issues with partner. Discussed pain plan with patient to help taper opioids given prolonged IV use and to prevent withdrawal like symptoms from precipitating additional issues. Discharge further complicated by social situation financial constraints. Will plan to contact patient to ensure transportation is coordinated for patient to present to MFM appointments/lab appointments #Sickle Cell Crisis *improved #Acute anemia iso sickle cell, *declined further transfusion Pain management with Dilaudid 1 mg every 2hrs as needed, required IV prior to dispo given travel/cold previous triggers -Encourage PO pain regimen with Oxycodone, discussed pain plan and taper to prevent overt withdrawal and precipitate further issues Discussed continued hydration and nutrition -Hgb 6.8 07/18, s/p 1 UPRBC, declined further exam -Continue b12 supplementation, script sent -Continue Bowel regimen #Hypomagnesemia #Hypokalemia Required daily replacement -Daily supplementation ordered, repeat BMP with mfm to discuss need for continued K and Mag #Arm pain, humeral osteonecrosis #Left hip pain, concern for osteonecrosis -Continue sparing pain management -Recommend close follow up with OP orthopedics/embosser apprentice to discuss management of osteonecrosis s/p delivery #, 34 weeks #high risk Patient is followed by obstetrics Will continue medications Gynecology consult, await recs for any further management On day of discharge, patient verbalized understanding of risks for declining transfusion. Close follow up with MFM and labs to be coordinated. Patient reports pain well controlled prior to dispo Discharge Exam Constitutional initially tearful, but easily calmed--requesting to get home ayaka, calm after plan coordinated Respiratory normal respiratory effort, lungs clear to auscultation Cardiovascular RRR, no murmur, no edema trace pedal edema Gastrointestinal (Abdomen) 34 week gestational abdomen, no pain tenderness contractions Updated Medication List Medication Instructions Recorded Confirmed Type folic acid 1 mg tablet 1 mg PO DAILY 06/14/23 07/15/23 History pediatric multivitamin no.76 1 tab PO DAILY 06/14/23 07/15/23 History (Flintstones Complete chewable tablet) acetaminophen 325 mg tablet 650 mg PO DIRECTED PRN Pain 07/15/23 07/15/23 History cyanocobalamin (vitamin B-12) 500 1,000 mcg (2 x 500 mcg) PO QAM #60 07/21/23 Rx mcg tablet tabs docusate sodium 100 mg capsule 100 mg PO BID #60 caps 07/21/23 Rx magnesium oxide 400 mg (241.3 mg 400 mg PO BID #90 tabs 07/21/23 Rx magnesium) tablet oxycodone 5 mg tablet 10 mg (2 x 5 mg) PO Q4H PRN pain 07/21/23 Rx #20 tabs potassium chloride 20 mEq 20 meq PO DAILY #30 tabs 07/21/23 Rx tablet,extended release(part/cryst) Hospital Stay Data Consultations 07/15/23 11:02 ED Decision to Admit Stat 07/15/23 11:20 Consult Obstetrics Routine 07/16/23 07:44 Consult Hematology Routine Pending Results Patient Have Any Pending Studies at Discharge: No Discharge Instructions Given to Patient (Per Discharging Provider) You were admitted for acute vaso-occlusive crisis You were given IV fluids, IV pain medications, and a blood transfusion on 07/18 for a blood level of 6.6 You responded appropriately initially; however, blood draw on 07/21 reveled blood level of 6.8. We discussed the benefits of blood transfusions and risks. At that time, you declined blood transfusion in hopes for close follow up with M FM to see if counts recover given resolution of pain crisis. It is imperative you follow up with your [facility] doctor to trend your lab work and ensure you counts are at an acceptable level for you and baby You will be sent with the follow prescriptions: -B12, 1,000mcg in morning daily--this will help with energy and blood production -Magnesium oxide 400mg twice a day, this will help with aches, muscle cramps, and many other vital functions especially since your magnesium is chronically low -Docusate sodium 100mg twice a day to ensure continued bowel movements and prevent constipation, especially with opioids -Potassium chloride 20meq daily, please take this daily and follow up with lab work to check your potassium levels and need to continue this supplement -Oxycodone 5mg, 20 tablets -You were getting 10mg in the hospital. Try taking 10mg (2 tablets) 4 times a day on 07/22, then reduce to 1 tablet 3-4 times a day on the following day, then 2-3 tablets with hopes to get to 1-2 tablets come 07/24. There will be extra for "break through" pain. The idea is to get to needing the medication as needed, without reliance/dependence. If you do not have pain, please do not use the medication; however, do not allow your pain to become so severe that you do not think the oral medication will suffice. Please continue your multivitamins and other medications as previous prescribed and directed by your [facility] physician We will contact you on 07/22 to ensure transportation and everything is in order. Total Time Total Time Spent Total Time Spent (In Minutes): 65
== END 2023-07-21 14:35 | disposition home or self-care (01) | DRG 831 ==
LOC: ED 09:58 → 2N 11:20 → SUATTDRO 11:20 → 2N 12:25 → 4E1 07-17 18:49